=== PATIENT | male | born 1935 | race Hispanic/Latino ===

== ENCOUNTER 2018-04-26 21:20 | Inpatient (IN) | payer MEDICARE ==
--- NOTE | 2018-04-26 21:49 | ED PDOC ---
Arrival/HPI - General Chief Complaint: Flu-like Symptoms Time Seen by Provider: 04/26/18 21:32 Historian: Patient - History of Present Illness Narrative History of Present Illness (Text): 04/26/18 21:46 Santino Gomze is an 82 year old male, whose past medical history includes hypertension, CABG x 3, and diabetes, who presents to the Emergency department accompanied by family complaining of fever. Patient states he has been experiencing fever, shaking, nausea, and generalized body aches throughout the day. notes patient and family recently returned from [place] a few weeks prior. Patient denies any chest pain, shortness of breath/ vomiting, diarrhea, urinary symptoms, back pain, neck pain, headache, dizziness, or any other complaints. Symptom Onset: Gradual Symptom Course: Unchanged Activities at Onset: Light Context: Home Past Medical History - Provider Review Nursing Documentation Reviewed: Yes - Past History Past History: Non-Contributing - Infectious Disease Hx of Infectious Diseases: None - Tetanus Immunization Tetanus Immunization: Unknown - Cardiac Hx Hypertension: Yes Hx Pacemaker: No - Pulmonary Hx Respiratory Disorders: No - Neurological Hx Paralysis: No - Renal Hx Renal Failure: Yes (1 kidney) - Endocrine/Metabolic Hx Hyperthyroidism: Yes - Hematological/Oncological Hx Blood Transfusions: No Hx Blood Transfusion Reaction: No - Musculoskeletal/Rheumatological Hx Musculoskeletal Disorders: No - Gastrointestinal Hx Gastrointestinal Disorders: No - Genitourinary/Gynecological Hx Prostate Problems: Yes (BPH) - Psychiatric Hx Emotional Abuse: No Hx Physical Abuse: No Hx Substance Use: No - Surgical History Hx Open Heart Surgery: Yes (1994) Other/Comment: LEFT KIDNEY REMOVAL - Anesthesia Hx Anesthesia Reactions: No Hx Malignant Hyperthermia: No - Suicidal Assessment Feels Threatened In Home Enviroment: No Family/Social History - Physician Review Nursing Documentation Reviewed: Yes Family/Social History: Unknown Family HX Smoking Status: Former Smoker Hx Alcohol Use: No Hx Substance Use: No Hx Substance Use Treatment: No Allergies/Home Meds Allergies/Adverse Reactions: Allergies No Known Allergies Allergy (Verified 02/12/15 10:15) Home Medications: Home Meds Medication Instructions Recorded Confirmed Allopurinol [Zyloprim] 100 mg PO DAILY 04/27/18 04/27/18 Atorvastatin [Lipitor] 20 mg PO DAILY 04/27/18 04/27/18 Carvedilol [Coreg] 6.25 mg PO DAILY 04/27/18 04/27/18 Escitalopram [Lexapro] 20 mg PO DAILY 04/27/18 04/27/18 Gabapentin [Neurontin] 100 mg PO DAILY 04/27/18 04/27/18 Losartan/Hydrochlorothiazide 1 tab PO DAILY 04/27/18 04/27/18 [Losartan-Hctz 100-12.5 mg Tab] Meclizine [Meclizine*] 25 mg DAILY 04/27/18 04/27/18 MetFORMIN ER [Glucophage XR] 500 mg PO DAILY 04/27/18 04/27/18 Oxybutynin [Oxybutynin Chloride] 5 mg PO DAILY 04/27/18 04/27/18 RX: Omeprazole 40 mg PO DAILY 04/27/18 04/27/18 Tamsulosin [Flomax] 0.4 mg PO DAILY 04/27/18 04/27/18 Tizanidine HCl [Zanaflex] 4 mg PO DAILY 04/27/18 04/27/18 oxyCODONE/Acetaminophen [Percocet 5 - 325 mg Q6H PRN 04/27/18 04/27/18 5/325 mg Tab] Review of Systems - Physician Review All systems were reviewed & negative as marked: Yes - Review of Systems Constitutional: Fevers, Other (+shaking) Eyes: Normal ENT: Normal Respiratory: Normal. absent: SOB, Cough Gastrointestinal: Nausea. absent: Abdominal Pain, Diarrhea, Vomiting Genitourinary Male: Normal. absent: Dysuria, Frequency, Hematuria, Urinary Output Changes Musculoskeletal: Normal. absent: Back Pain, Neck Pain Skin: Normal Neurological: Normal. absent: Headache, Dizziness Endocrine: Normal Hemo/Lymphatic: Normal Psychiatric: Normal Physical Exam Vital Signs Reviewed: Yes Vital Signs Temp Pulse Resp BP Pulse Ox 04/26/18 21:28 102.6 F H 107 H 22 169/81 H 96 Temperature: Afebrile Blood Pressure: Hypertensive Pulse: Regular Respiratory Rate: Normal Appearance: Positive for: Well-Appearing, Non-Toxic, Comfortable Pain Distress: None Mental Status: Positive for: Alert and Oriented X 3 - Systems Exam Head: Present: Atraumatic, Normocephalic Pupils: Present: PERRL Extroacular Muscles: Present: EOMI Conjunctiva: Present: Normal Mouth: Present: Moist Mucous Membranes Neck: Present: Normal Range of Motion Respiratory/Chest: Present: Clear to Auscultation, Good Air Exchange. No: Respiratory Distress, Accessory Muscle Use Cardiovascular: Present: Regular Rate and Rhythm, Normal S1, S2. No: Murmurs Abdomen: No: Tenderness, Distention, Peritoneal Signs Back: Present: Normal Inspection Upper Extremity: Present: Normal Inspection. No: Cyanosis, Edema Lower Extremity: Present: Normal Inspection. No: Edema Neurological: Present: GCS=15, CN II-XII Intact, Speech Normal Skin: Present: Warm, Dry, Normal Color. No: Rashes Psychiatric: Present: Alert, Oriented x 3, Normal Insight, Normal Concentration Medical Decision Making ED Course and Treatment: 04/26/18 21:46 Impression: 82 year old male brought in for fever, shaking, nausea, and generalized body aches. Plan: -- EKG -- Chest X-ray -- Labs, VBG, blood cultures -- Rapid influenza -- Urinalysis, urine cultures -- Reassess and disposition Prior Visits: Notes and results from previous visits were reviewed. Progress Notes: 04/26/18 22:01 Reviewed EKG, sinus tachycardia at 110 bpm. Septal infarct. Non-specific ST/T changes. 04/26/18 22:46 Chest X-ray reviewed, shows no acute processes. 04/27/18 00:08 Case discussed with medical legal investigator district home economics agent, who is aware and agrees with plan. 04/27/18 00:[address] Falcon, [facility] physician, who is aware and agrees with plan. Accepts pt in to hospitalist service. Pt will go to remote telemetry observation for dehydration. - Lab Interpretations I have reviewed the lab results: Yes - RAD Interpretation Emergency Medicine Nurse Practitioner: ED Physician - EKG Interpretation Interpreted by ED Physician: Yes Type: 12 lead EKG - Scribe Statement The provider has reviewed the documentation as recorded by the Sandeep Jacobo Provider Scribe Attestation: All medical record entries made by the Scribe were at my direction and personally dictated by me. I have reviewed the chart and agree that the record accurately reflects my personal performance of the history, physical exam, medical decision making, and the department course for this patient. I have also personally directed, reviewed, and agree with the discharge instructions and disposition. Disposition/Present on Arrival - Present on Arrival Any Indicators Present on Arrival: No History of DVT/PE: No History of Uncontrolled Diabetes: No Urinary Catheter: No History of Decub. Ulcer: No History Surgical Site Infection Following: None - Disposition Have Diagnosis and Disposition been Completed?: Yes Diagnosis: Renal insufficiency, Dehydration Disposition: HOSPITALIZED Disposition Time: 00:10 Condition: FAIR
[2018-04-26 22:18] LABS: VENOUS BLOOD GAS PO2 32 mm/Hg (30-55); VENOUS BLOOD PH 7.29 (7.32-7.43)
[2018-04-26 22:20] LABS: BASO # 0.01 K/mm3 (0.0-2.0); BASO % 0.1 % (0.0-3.0); EOS # 0.2 (0.0-0.7); EOS % 1.7 % (1.5-5.0); GRAN # 7.18 (1.4-6.5); GRAN % 83.1 % (50.0-68.0); HEMOGLOBIN 11.8 g/dL (14.0-18.0); LYMPH # 0.9 (1.2-3.4); LYMPH % 10.4 % (22.0-35.0); MEAN CELL VOLUME 99.7 fl (80.0-105.0); MEAN CORPUSCULAR HEMOGLOBIN 33.1 pg (25.0-35.0); MEAN CORPUSCULAR HGB CONC 33.1 g/dl (31.0-37.0); MEAN PLATELET VOLUME 11.9 fl (7.0-11.0); MONO # 0.4 (0.1-0.6); MONO % 4.7 % (1.0-6.0); RBC 3.57 10^6/uL (3.5-6.1); RED CELL DISTRIBUTION WIDTH 13.1 % (11.5-14.5); URINE APPEARANCE CLEAR (CLEAR); URINE BILIRUBIN NEGATIVE (NEGATIVE); URINE BLOOD NEGATIVE (NEGATIVE); URINE COLOR YELLOW (YELLOW); URINE GLUCOSE (UA) NEGATIVE (NEGATIVE); URINE LEUKOCYTE ESTERASE NEGATIVE Leu/uL (NEGATIVE); URINE PROTEIN 100 mg/dL (<30 mg/dL); URINE UROBILINOGEN 0.2 E.U./dL (<1 E.U./dL); WHITE BLOOD COUNT 8.7 10^3/uL (4.5-11.0)
[2018-04-26 22:25] LABS: URINE BACTERIA NEG (NEG); URINE HYALINE CAST 0 - 2 /hpf; URINE RBC 0 - 2 /hpf (0-2); URINE WBC 0 - 2 /hpf (0-6)
[2018-04-26 22:26] LABS: INR 1.11; PARTIAL THROMBOPLASTIN TIME 27.2 Seconds (25.1-36.5); PROTHROMBIN TIME 12.7 SECONDS (9.4-12.5)
[2018-04-26 22:28] LABS: ALB/GLOB RATIO 1.3 (1.1-1.8); ALBUMIN 4.4 g/dL (3.0-4.8); CALCIUM 9.1 mg/dL (8.4-10.5)
[2018-04-26] MEDS ORDERED: Sodium Chloride 0.9% 1,000 ML IV SCH (22:45)
[2018-04-27] MEDS ORDERED: Sodium Chloride 0.9% 1,000 ML IV SCH (01:15)
[2018-04-27] MEDS: Sodium Chloride 0.9% 1,000 ML IV SCH ×2 (01:30→20:32)
[2018-04-27] MEDS ORDERED: Sod Polystyrene Sulf 15 gm/60 ml Susp PO STA (02:00)
--- NOTE | 2018-04-27 02:15 | CP.PCM.HP ---
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 Patient reports symptoms began after he came back from a trip to [place] 2 days ago; reports Body aches, shivering, fever, chills, nausea, malaise and solitary episode of SOB. Denies any sick contacts at home or in [place]. Patient does report that he has chronic R leg pain which he feels has worsened in severity however does not report any change in quality of the leg pain or worsening w/ ambulation. Reports associated R ear pain, denies any dizziness, change to vision. Also denies any cough, sore throat, neck pain, neck stiffness, chest pain, hematuria, dysuria, abd pain vomiting, diarrhea constipation. Denies any new onset rash as well. He also denies any Lower extremity swelling. Remainder 12 system ROS is otherwise negative. 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 Pharmacy: [facility] Rx: Percocet 5/325 Q6H PRN Losartan-HCTZ 100-12.5 QD Omeprazole 40 QD Tamsulosin 0.4 QD Gabapentin 100 QD Tizanidine 4 QHS Metformin 500 QD Atorvastatin 20 QD Coreg 6.25 QD Oxybutynin 5 QD Allopurinol 100 QD Escitalopram 20 QD Meclizine 25 QD Social: Former smoker - quit 1994, Denies EtOH, Denies Illicit Family: Denies Present on Admission - Present on Admission Any Indicators Present on Admission: No Review of Systems - Review of Systems All systems: reviewed and no additional remarkable complaints except Review of Systems: as per HPI Past Patient History - Infectious Disease Hx of Infectious Diseases: None - Tetanus Immunizations Tetanus Immunization: Unknown - Past Social History Smoking Status: Former Smoker - CARDIAC Hx Hypertension: Yes Hx Pacemaker: No - PULMONARY Hx Respiratory Disorders: No - NEUROLOGICAL Hx Paralysis: No - RENAL Hx Renal Failure: Yes (1 kidney) - ENDOCRINE/METABOLIC Hx Hyperthyroidism: Yes - HEMATOLOGICAL/ONCOLOGICAL Hx Blood Transfusions: No Hx Blood Transfusion Reaction: No - MUSCULOSKELETAL/RHEUMATOLOGICAL Hx Musculoskeletal Disorders: No - GASTROINTESTINAL Hx Gastrointestinal Disorders: No - GENITOURINARY/GYNECOLOGICAL Hx Prostate Problems: Yes (BPH) - PSYCHIATRIC Hx Emotional Abuse: No Hx Physical Abuse: No Hx Substance Use: No - SURGICAL HISTORY Hx Open Heart Surgery: Yes (1994) Other/Comment: LEFT KIDNEY REMOVAL - ANESTHESIA Hx Anesthesia Reactions: No Hx Malignant Hyperthermia: No Meds Allergies/Adverse Reactions: Allergies Allergy/AdvReac Type Severity Reaction Status Date / Time No Known Allergies Allergy Verified 02/12/15 10:15 Physical Exam - Constitutional Appears: Well, Non-toxic, No Acute Distress - Head Exam Head Exam: ATRAUMATIC, NORMOCEPHALIC - Eye Exam Eye Exam: EOMI, Normal appearance, PERRL. absent: Scleral icterus - ENT Exam Additional comments: Oropharynx erythematous Tongue red BL tympanic membranes non erythematous, good cone of light, non purulent, no drainage - Neck Exam Neck exam: Positive for: Normal Inspection. Negative for: Lymphadenopathy, Meningismus, Tenderness - Respiratory Exam Respiratory Exam: Clear to Auscultation Bilateral, NORMAL BREATHING PATTERN. absent: Rales, Rhonchi, Wheezes - Cardiovascular Exam Cardiovascular Exam: RRR, +S1, +S2. absent: Systolic Murmur - GI/Abdominal Exam GI & Abdominal Exam: Distended, Soft. absent: Tenderness Additional comments: normoactive bowel sounds tympanic - Extremities Exam Extremities exam: Negative for: tenderness Additional comments: pedal pulses diminished lower extremities warm robin's sign negative no lower extremity edema - Back Exam Back exam: absent: CVA tenderness (L), CVA tenderness (R) - Neurological Exam Neurological exam: Alert, CN II-XII Intact, Oriented x3 - Psychiatric Exam Psychiatric exam: Normal Affect, Normal Mood - Skin Skin Exam: Dry, Intact, Normal Color, Warm Results - Vital Signs Recent Vital Signs: Last Vital Signs Temp 99.3 F 04/27/18 00:53 Pulse 93 H 04/27/18 01:41 Resp 17 04/27/18 01:41 BP 125/69 04/27/18 01:41 Pulse Ox 98 04/27/18 01:41 - Labs Result Diagrams: 04/26/18 22:00 04/26/18 22:00 Labs: Laboratory Results - last 24 hr 04/26/18 04/26/18 04/26/18 22:00 22:00 22:00 WBC 8.7 RBC 3.57 Hgb 11.8 L Hct 35.6 L MCV 99.7 MCH 33.1 MCHC 33.1 RDW 13.1 Plt Count 157 MPV 11.9 H Gran % 83.1 H Lymph % (Auto) 10.4 L [place] % (Auto) 4.7 Eos % (Auto) 1.7 Baso % (Auto) 0.1 Gran # 7.18 H Lymph # (Auto) 0.9 L [place] # (Auto) 0.4 Eos # (Auto) 0.2 Baso # (Auto) 0.01 PT 12.7 H INR 1.11 APTT 27.2 pO2 VBG pH VBG pCO2 VBG HCO3 VBG Total CO2 VBG O2 Sat (Calc) VBG Base Excess VBG Potassium Sodium Chloride Glucose Lactate FiO2 Potassium Carbon Dioxide Anion Gap BUN Creatinine Est GFR ( Amer) Est GFR (Non-Af Amer) Random Glucose Calcium Phosphorus Magnesium Total Bilirubin AST ALT Alkaline Phosphatase Total Protein Albumin Globulin Albumin/Globulin Ratio Venous Blood Potassium Urine Color Yellow Urine Appearance Clear Urine pH 6.0 Ur Specific [place] 1.025 Urine Protein 100 H Urine Glucose (UA) Negative Urine Ketones Negative Urine Blood Negative Urine Nitrate Negative Urine Bilirubin Negative Urine Urobilinogen 0.2 Ur Leukocyte Esterase Negative Urine RBC 0 - 2 Urine WBC 0 - 2 Ur Epithelial Cells None Urine Bacteria Neg Hyaline Casts 0 - 2 Urine Other Usperm Influenza Typ A,B (EIA) 04/26/18 04/26/18 04/26/18 22:00 22:00 22:00 WBC RBC Hgb Hct MCV MCH MCHC RDW Plt Count MPV Gran % Lymph % (Auto) [place] % (Auto) Eos % (Auto) Baso % (Auto) Gran # Lymph # (Auto) [place] # (Auto) Eos # (Auto) Baso # (Auto) PT INR APTT pO2 32 VBG pH 7.29 L VBG pCO2 45.0 VBG HCO3 21.6 VBG Total CO2 23.0 VBG O2 Sat (Calc) 68.5 H VBG Base Excess -5.0 L VBG Potassium 5.0 Sodium 139.0 140 Chloride 106.0 108 H Glucose 199 H Lactate 1.7 FiO2 21.0 Potassium 5.2 H Carbon Dioxide 22 Anion Gap 15 BUN 59 H Creatinine 2.3 H Est GFR ( Amer) 33 Est GFR (Non-Af Amer) 27 Random Glucose 188 H Calcium 9.1 Phosphorus 2.1 L Magnesium 1.1 L Total Bilirubin 0.6 AST 41 ALT 45 Alkaline Phosphatase 87 Total Protein 7.8 Albumin 4.4 Globulin 3.4 Albumin/Globulin Ratio 1.3 Venous Blood Potassium 5.0 Urine Color Urine Appearance Urine pH Ur Specific [place] Urine Protein Urine Glucose (UA) Urine Ketones Urine Blood Urine Nitrate Urine Bilirubin Urine Urobilinogen Ur Leukocyte Esterase Urine RBC Urine WBC Ur Epithelial Cells Urine Bacteria Hyaline Casts Urine Other Influenza Typ A,B (EIA) Negative for flu a/b Assessment & Plan - Assessment and Plan (Free Text) Assessment: 82M w/ PMH CAD s/p triple bypass, renal cell CA s/p nephrectomy, DM, and chronic RLE pain, presented to [facility] ED on 04/27/18 w/ c/o arthalgias/myalgias, malaise, fever, found to have elevated Cr on admission admitted to obs for DELMAR on CKD, and febrile illness. Plan: DELMAR on CKD Baseline Cr. 1.7-1.8; BUN/ Cr on admission 59 / 2.3 Proteinuria on UA Monitor urine output - strict IO F/u bladder scan Will hold home Losartan-HCTZ for now Avoid nephrotoxic medications/ agents/ contrast C/w home flomax C/w home oxybutynin Nephrology Consulted - Dr. Wilks appreciate reccs Febrile Illness - most likely viral; r/o bacterial Follow up WBC in AM Follow up blood / urine Cx CXR wnl UA w/o bacteria/pyuria Supportive care Tylenol 650mg PRN fever + pain RLE Pain - most likely chronic sciatic pain however given recent travel hx must r/o DVT / PE F/u D-Dimer C/w home tizanidine Hyperkalemia 5.2 on adm; x1 kayexlate repeat K+ in AM Hx HTN C/w home coreg 6.25 qd Hx DM C/w home metformin 500 qd Hx HLD C/w atorvastatin 20 Hx Vertigo C/w home Meclizine PPX: Home Omeprazole, Heparin 5000 Q12 SC; AVOID LOVENOX DISPO: Obs med/surg Patient was seen, examined, discussed w/ attending physician Dr. Ezekiel Acosta DO PGY1 INTERNAL MEDICINE BINGO WORKER - Date & Time Date: 04/27/18 Time: 02:41 <Vinny Falcon - Last Filed: 04/27/18 06:45> Results - Vital Signs Recent Vital Signs: Last Vital Signs Temp 98.1 F 04/27/18 04:44 Pulse 71 04/27/18 06:42 Resp 16 04/27/18 06:42 BP 110/65 04/27/18 06:42 Pulse Ox 100 04/27/18 06:42 - Labs Result Diagrams: 04/27/18 04:13 04/27/18 04:13 Labs: Laboratory Results - last 24 hr 04/26/18 04/26/18 04/26/18 22:00 22:00 22:00 WBC 8.7 RBC 3.57 Hgb 11.8 L Hct 35.6 L MCV 99.7 MCH 33.1 MCHC 33.1 RDW 13.1 Plt Count 157 MPV 11.9 H Gran % 83.1 H Lymph % (Auto) 10.4 L [place] % (Auto) 4.7 Eos % (Auto) 1.7 Baso % (Auto) 0.1 Gran # 7.18 H Lymph # (Auto) 0.9 L [place] # (Auto) 0.4 Eos # (Auto) 0.2 Baso # (Auto) 0.01 PT 12.7 H INR 1.11 APTT 27.2 D-Dimer, Quantitative pO2 VBG pH VBG pCO2 VBG HCO3 VBG Total CO2 VBG O2 Sat (Calc) VBG Base Excess VBG Potassium Sodium Chloride Glucose Lactate FiO2 Potassium Carbon Dioxide Anion Gap BUN Creatinine Est GFR ( Amer) Est GFR (Non-Af Amer) POC Glucose (mg/dL) Random Glucose Calcium Phosphorus Magnesium Total Bilirubin AST ALT Alkaline Phosphatase Total Protein Albumin Globulin Albumin/Globulin Ratio Venous Blood Potassium Urine Color Yellow Urine Appearance Clear Urine pH 6.0 Ur Specific [place] 1.025 Urine Protein 100 H Urine Glucose (UA) Negative Urine Ketones Negative Urine Blood Negative Urine Nitrate Negative Urine Bilirubin Negative Urine Urobilinogen 0.2 Ur Leukocyte Esterase Negative Urine RBC 0 - 2 Urine WBC 0 - 2 Ur Epithelial Cells None Urine Bacteria Neg Hyaline Casts 0 - 2 Urine Other Usperm Influenza Typ A,B (EIA) 04/26/18 04/26/18 04/26/18 22:00 22:00 22:00 WBC RBC Hgb Hct MCV MCH MCHC RDW Plt Count MPV Gran % Lymph % (Auto) [place] % (Auto) Eos % (Auto) Baso % (Auto) Gran # Lymph # (Auto) [place] # (Auto) Eos # (Auto) Baso # (Auto) PT INR APTT D-Dimer, Quantitative pO2 32 VBG pH 7.29 L VBG pCO2 45.0 VBG HCO3 21.6 VBG Total CO2 23.0 VBG O2 Sat (Calc) 68.5 H VBG Base Excess -5.0 L VBG Potassium 5.0 Sodium 139.0 140 Chloride 106.0 108 H Glucose 199 H Lactate 1.7 FiO2 21.0 Potassium 5.2 H Carbon Dioxide 22 Anion Gap 15 BUN 59 H Creatinine 2.3 H Est GFR ( Amer) 33 Est GFR (Non-Af Amer) 27 POC Glucose (mg/dL) Random Glucose 188 H Calcium 9.1 Phosphorus 2.1 L Magnesium 1.1 L Total Bilirubin 0.6 AST 41 ALT 45 Alkaline Phosphatase 87 Total Protein 7.8 Albumin 4.4 Globulin 3.4 Albumin/Globulin Ratio 1.3 Venous Blood Potassium 5.0 Urine Color Urine Appearance Urine pH Ur Specific [place] Urine Protein Urine Glucose (UA) Urine Ketones Urine Blood Urine Nitrate Urine Bilirubin Urine Urobilinogen Ur Leukocyte Esterase Urine RBC Urine WBC Ur Epithelial Cells Urine Bacteria Hyaline Casts Urine Other Influenza Typ A,B (EIA) Negative for flu a/b 04/26/18 04/27/18 04/27/18 22:02 01:00 04:09 WBC RBC Hgb Hct MCV MCH MCHC RDW Plt Count MPV Gran % Lymph % (Auto) [place] % (Auto) Eos % (Auto) Baso % (Auto) Gran # Lymph # (Auto) [place] # (Auto) Eos # (Auto) Baso # (Auto) PT INR APTT D-Dimer, Quantitative 1025 H pO2 VBG pH VBG pCO2 VBG HCO3 VBG Total CO2 VBG O2 Sat (Calc) VBG Base Excess VBG Potassium Sodium Chloride Glucose Lactate FiO2 Potassium Carbon Dioxide Anion Gap BUN Creatinine Est GFR ( Amer) Est GFR (Non-Af Amer) POC Glucose (mg/dL) 175 H 162 H Random Glucose Calcium Phosphorus Magnesium Total Bilirubin AST ALT Alkaline Phosphatase Total Protein Albumin Globulin Albumin/Globulin Ratio Venous Blood Potassium Urine Color Urine Appearance Urine pH Ur Specific [place] Urine Protein Urine Glucose (UA) Urine Ketones Urine Blood Urine Nitrate Urine Bilirubin Urine Urobilinogen Ur Leukocyte Esterase Urine RBC Urine WBC Ur Epithelial Cells Urine Bacteria Hyaline Casts Urine Other Influenza Typ A,B (EIA) 04/27/18 04/27/18 04:13 04:13 WBC 9.3 RBC 3.26 L Hgb 10.6 L Hct 32.5 L MCV 99.7 MCH 32.5 MCHC 32.6 RDW 12.8 Plt Count 169 MPV 12.1 H Gran % 73.8 H Lymph % (Auto) 17.3 L [place] % (Auto) 7.8 H Eos % (Auto) 1.0 L Baso % (Auto) 0.1 Gran # 6.86 H Lymph # (Auto) 1.6 [place] # (Auto) 0.7 H Eos # (Auto) 0.1 Baso # (Auto) 0.01 PT INR APTT D-Dimer, Quantitative pO2 VBG pH VBG pCO2 VBG HCO3 VBG Total CO2 VBG O2 Sat (Calc) VBG Base Excess VBG Potassium Sodium 142 Chloride 109 H Glucose Lactate FiO2 Potassium 5.0 Carbon Dioxide 25 Anion Gap 12 BUN 57 H Creatinine 2.2 H Est GFR ( Amer) 35 Est GFR (Non-Af Amer) 29 POC Glucose (mg/dL) Random Glucose 171 H Calcium 9.0 Phosphorus 2.5 Magnesium 1.2 L Total Bilirubin 0.4 AST 35 ALT 39 Alkaline Phosphatase 76 Total Protein 7.1 Albumin 3.9 Globulin 3.2 Albumin/Globulin Ratio 1.2 Venous Blood Potassium Urine Color Urine Appearance Urine pH Ur Specific [place] Urine Protein Urine Glucose (UA) Urine Ketones Urine Blood Urine Nitrate Urine Bilirubin Urine Urobilinogen Ur Leukocyte Esterase Urine RBC Urine WBC Ur Epithelial Cells Urine Bacteria Hyaline Casts Urine Other Influenza Typ A,B (EIA) Attending/Attestation - Attestation I have personally seen and examined this patient.: Yes I have fully participated in the care of the patient.: Yes I have reviewed all pertinent clinical information: Yes
[2018-04-27 04:26] LABS: BASO # 0.01 K/mm3 (0.0-2.0); BASO % 0.1 % (0.0-3.0); EOS # 0.1 (0.0-0.7); GRAN # 6.86 (1.4-6.5); GRAN % 73.8 % (50.0-68.0); HEMOGLOBIN 10.6 g/dL (14.0-18.0); LYMPH # 1.6 (1.2-3.4); LYMPH % 17.3 % (22.0-35.0); MEAN CELL VOLUME 99.7 fl (80.0-105.0); MEAN CORPUSCULAR HEMOGLOBIN 32.5 pg (25.0-35.0); MEAN CORPUSCULAR HGB CONC 32.6 g/dl (31.0-37.0); MEAN PLATELET VOLUME 12.1 fl (7.0-11.0); MONO # 0.7 (0.1-0.6); MONO % 7.8 % (1.0-6.0); RBC 3.26 10^6/uL (3.5-6.1); RED CELL DISTRIBUTION WIDTH 12.8 % (11.5-14.5); WHITE BLOOD COUNT 9.3 10^3/uL (4.5-11.0)
[2018-04-27 04:33] LABS: ALB/GLOB RATIO 1.2 (1.1-1.8); ALBUMIN 3.9 g/dL (3.0-4.8)
[2018-04-27 04:46] VITALS: BMI 28.0
[2018-04-27] MEDS: Heparin25000 units/250ml 1/2NS 25,000 UNITS/250 ML BAG IV PRN (05:26)
--- NOTE | 2018-04-27 08:40 | CARD ---
APPROVED REPORT Date of service: 04/26/2018 EKG Measurement Heart [id number] <Conclusion> Sinus tachycardia Possible Left atrial enlargement Septal infarct, age undetermined Abnormal ECG
--- NOTE | 2018-04-27 09:39 | RAD ---
Date of service: 04/26/2018 HISTORY: Sepsis Patient COMPARISON: 07/05/2017 FINDINGS: LUNGS: No active pulmonary disease. PLEURA: No significant pleural effusion identified, no pneumothorax apparent. CARDIOVASCULAR: Aortic calcification Normal cardiac size. No pulmonary vascular congestion. OSSEOUS STRUCTURES: Sternal wires VISUALIZED UPPER ABDOMEN: Normal. OTHER FINDINGS: None. IMPRESSION: No active disease.
[2018-04-27] MEDS: Pantoprazole 40 mg EC Tab PO SCH (11:00)
--- NOTE | 2018-04-27 12:43 | US ---
HISTORY: Leg pain and swelling. Evaluate for DVT PHYSICIAN(S): Chet Stuart MD. TECHNIQUE: Duplex sonography and color-flow Doppler with graded compression were used to evaluate the deep venous systems of both lower extremities. The exam is somewhat limited by edema. FINDINGS: The visualized deep venous systems of both lower extremities are sonographically normal and compressible. Normal wave forms and augmentation are seen. There is no sonographic evidence for deep venous thrombosis in the visualized segments of both lower extremities. IMPRESSION: No sonographic evidence for deep venous thrombosis in the visualized segments of both lower extremities.
[2018-04-27] MEDS: Insulin Reg-LOW-Coverage SC SCH ×4 (13:29→22:19)
[2018-04-27] MEDS ORDERED: Insulin Regular 1 UNITS/0.01 ML ML ONE (13:35)
--- NOTE | 2018-04-27 18:40 | CON ---
DATE OF CONSULTATION: 04/27/2018 NEPHROLOGY CONSULTATION HISTORY OF PRESENT ILLNESS: The patient is an 82-year-old male with past medical history of hypertension, diabetes, CAD, status post CABG, CKD 3B, renal cell carcinoma, status post left nephrectomy, presented with body aches and fever. Nephrology being consulted for acute kidney injury. The patient reports above symptoms occurring just after coming back from a 2-month trip to [place]. The patient came back 2 days ago, did not have symptoms while traveling. Reports nausea without vomiting, also reporting some throat pain. The patient otherwise reports right hip pain that is currently improved, was started on pain medication just before leaving for [place] that he continued to take daily. The patient otherwise denies any dysuria, denies any dizziness, denies any diarrhea, has occasional shortness of breath. PAST MEDICAL HISTORY: As above. The patient had been having orthostatic symptoms with low blood pressure readings during office visit 6 months ago and had one of his blood pressure medications stopped at that time (Imdur). FAMILY HISTORY: None per the patient. SOCIAL HISTORY: Former smoker. REVIEW OF SYSTEMS: CONSTITUTIONAL: As per HPI, reporting fever and chills. HEENT: No change in vision. RESPIRATORY: As per HPI. GI: As per HPI. : As per HPI. MUSCULOSKELETAL: As per HPI. NEURO: Intermittent headache. MUSCULOSKELETAL: As per HPI. PHYSICAL EXAMINATION: VITAL SIGNS: This afternoon, blood pressure 141/84, heart rate 78, respirations 18, temperature 99.5, O2 sat 97% on room air. GENERAL: No distress. Conversing coherently in full sentences. HEENT: Moist mucous membranes. Nonicteric. No cervical lymphadenopathy. RESPIRATORY: Lungs clear to auscultation. Mild bilateral basal rales appreciated. No respiratory distress. No rhonchi, no wheezes. CARDIOVASCULAR: Heart sounds S1 and S2 normal. No murmurs, no gallops, no rubs. GI: Abdomen soft, nontender, nondistended. : No bladder distention. EXTREMITIES: Minimal lower leg edema. SKIN: Warm. No cyanosis. PSYCHIATRIC: Normal mood, normal affect. NEURO: No resting tremor. DIAGNOSTIC DATA: Labs from this morning, CBC: WBC 9.3, hemoglobin 10.6, hematocrit 32.5, platelets 169,000. Chemistry panel: Sodium 142, potassium 5.0, chloride 109, bicarb 25, BUN 57, creatinine 2.2, glucose 171, phosphorus 2.5, calcium 9.0, magnesium 1.2. AST 35, ALT 39, albumin 3.9. Procalcitonin 8.43. Urine: 100 mg/dL protein, leukocyte esterase negative, blood negative. ABG from presentation pH 7-9, pCO2 of 45. Chest x-ray directly visualized, lungs clear. Lower extremity ultrasound showing no evidence of DVT in either lower extremity. ASSESSMENT/PLAN 1. Acute kidney injury on chronic kidney disease, 3B, mild worsening of renal function with baseline serum creatinine of approximately 1.8 increasing to 2.2, likely hemodynamically mediated in the setting of decreased p.o. intake and with the patient having been on diuretic. Mild hyperkalemia seen, already improved after dose of Kayexalate. Otherwise stable volume status. Should avoid nephrotoxic agents. We will decrease IV fluids to NS of 50 mL/h as the patient is normotensive. Agree with holding ARB for now. 2. Hypertensive chronic kidney disease. Blood pressure normotensive to mildly elevated. The patient on Coreg 6.25 mg b.i.d. and losartan/hydrochlorothiazide combination at home. Continue Coreg. Agree with holding losartan and hydrochlorothiazide for now. 3. Fever, unclear etiology, currently not febrile, with T-max on presentation of 102.6. No obvious sign of infection. We will follow up cultures. If antibiotics needed, should be dosed for creatinine clearance less than 30. Thank you for this referral. We will be following up closely. Evelio Wilks MD
[2018-04-27] MEDS ORDERED: Piperacillin/Tazobact 3.375 gm 100 ML IVPB SCH (22:00)
[2018-04-27] MEDS: Piperacillin/Tazobact 2.25gm 2.25 GM/100 ML BAG IVPB SCH (22:23)
[2018-04-28] MEDS: Heparin25000 units/250ml 1/2NS 25,000 UNITS/250 ML BAG IV PRN (00:21)
[2018-04-28] MEDS ORDERED: Barium Sulfate Susp 2.1% w/v, 2.0% w/w 450 mL Bottle PO ONE (03:37)
[2018-04-28] MEDS ORDERED: Iohexol 240 (50 ml) ONE (05:17)
[2018-04-28] MEDS: Pantoprazole 40 mg EC Tab PO SCH (05:25)
[2018-04-28] MEDS: Piperacillin/Tazobact 2.25gm 2.25 GM/100 ML BAG IVPB SCH ×3 (05:25→21:43)
[2018-04-28 07:09] LABS: BASO # 0.01 K/mm3 (0.0-2.0); BASO % 0.1 % (0.0-3.0); EOS # 0.2 (0.0-0.7); EOS % 2.6 % (1.5-5.0); GRAN # 4.57 (1.4-6.5); GRAN % 62.9 % (50.0-68.0); HEMOGLOBIN 11.1 g/dL (14.0-18.0); LYMPH # 1.6 (1.2-3.4); LYMPH % 21.9 % (22.0-35.0); MEAN CELL VOLUME 98.5 fl (80.0-105.0); MEAN CORPUSCULAR HEMOGLOBIN 32.6 pg (25.0-35.0); MEAN PLATELET VOLUME 11.8 fl (7.0-11.0); MONO # 0.9 (0.1-0.6); MONO % 12.5 % (1.0-6.0); RBC 3.41 10^6/uL (3.5-6.1); WHITE BLOOD COUNT 7.3 10^3/uL (4.5-11.0)
[2018-04-28 07:26] LABS: ALB/GLOB RATIO 1.2 (1.1-1.8); ALBUMIN 3.7 g/dL (3.0-4.8)
--- NOTE | 2018-04-28 07:39 | CP.PCM.CON ---
<[facility] Hager - Last Filed: 04/28/18 11:50> History of Present Illness - History of Present Illness History of Present Illness: Infectious disease consult note for Dr. Doherty/Dr. Rivas service - Alexander Hager PGY3 HPI: Patient is a 82yo male with past medical history of CAD s/p triple bypass (1994), Renal Ca s/p R nephrectomy ([id number]?), Diabetes, hypertension, CKD stage 3 that presented to [facility] with c/o fevers and malaise that started shortly after returning from a trip to [place] 2 days prior to presentation. He stated that upon returning he began having chills, nausea and body aches. He denied any sick contacts while abroad and questionable food ingestion. Presently he denies chest pain, palpitations, abdominal pain, vomiting, diarrhea, constipation, rashes, cough, sore throat, neck stiffness, focal weakness, numbness, tingling. 12point ROS as per above otherwise negative PMH: as stated above PSH: as stated above Allergies: NKDA Social Hx: Former tobacco use (quit 1994), denies alcohol and illicit drug use Family Hx: denies PMD: Dr. Shabazz Lottery Clerk: Dr. Wilks Past Patient History - Infectious Disease Hx of Infectious Diseases: None - Tetanus Immunizations Tetanus Immunization: Unknown - Past Social History Smoking Status: Former Smoker - CARDIAC Hx Hypertension: Yes Hx Pacemaker: No - PULMONARY Hx Respiratory Disorders: No - NEUROLOGICAL Hx Neurological Disorder: No - RENAL Hx Renal Failure: Yes (1 kidney) - ENDOCRINE/METABOLIC Hx Hyperthyroidism: Yes - HEMATOLOGICAL/ONCOLOGICAL Hx Blood Transfusions: No Hx Blood Transfusion Reaction: No - MUSCULOSKELETAL/RHEUMATOLOGICAL Hx Falls: No - GASTROINTESTINAL Hx Gastrointestinal Disorders: No - GENITOURINARY/GYNECOLOGICAL Hx Prostate Problems: Yes (BPH) - PSYCHIATRIC Hx Emotional Abuse: No Hx Physical Abuse: No - SURGICAL HISTORY Hx Open Heart Surgery: Yes (1994) Other/Comment: LEFT KIDNEY REMOVAL - ANESTHESIA Hx Anesthesia: Yes Hx Anesthesia Reactions: No Hx Malignant Hyperthermia: No Meds Allergies/Adverse Reactions: Allergies Allergy/AdvReac Type Severity Reaction Status Date / Time No Known Allergies Allergy Verified 02/12/15 10:15 - Medications Medications: Current Medications Acetaminophen (Tylenol 325mg Tab) 650 mg PO Q4 PRN PRN Reason: Fever >100.4 F Last Admin: 04/27/18 17:20 Dose: 650 mg Allopurinol (Zyloprim) 100 mg PO DAILY [facility] Last Admin: 04/27/18 10:58 Dose: 100 mg Atorvastatin Calcium (Lipitor) 20 mg PO DAILY [facility] Last Admin: 04/27/18 10:59 Dose: 20 mg Carvedilol (Coreg) 6.25 mg PO BID [facility] Doxycycline Hyclate (Doryx) 100 mg PO Q12 [facility]; Protocol Stop: 05/06/18 22:01 Last Admin: 04/27/18 22:23 Dose: 100 mg Escitalopram Oxalate (Lexapro) 20 mg PO DAILY [facility] Last Admin: 04/27/18 10:59 Dose: 20 mg Gabapentin (Neurontin) 100 mg PO DAILY [facility]; Protocol Last Admin: 04/27/18 10:58 Dose: 100 mg Sodium Chloride (Sodium Chloride 0.9%) 1,000 mls @ 100 mls/hr IV .Q10H [facility] Last Admin: 04/27/18 20:32 Dose: 100 mls/hr Heparin Sodium/Sodium Chloride (Heparin 62078 Units/250ml 1/2 Normal Saline) 25,000 units in 250 mls @ 13.749 mls/hr IV .[id number] PRN; Protocol PRN Reason: ADJUST RATE PER PROTOCOL Last Admin: 04/28/18 00:21 Dose: 18 units/kg/hr, 13.749 mls/hr Piperacillin Sod/Tazobactam Sod (Zosyn 2.25 Gm In 0.9% 100 Ml) 2.25 gm in 100 mls @ 100 mls/hr IVPB Q8 [facility]; Protocol Stop: 05/06/18 22:01 Last Admin: 04/28/18 05:25 Dose: 100 mls/hr Insulin Human Regular (Humulin R Low) 0 units SC ACHS [facility] Last Admin: 04/27/18 22:19 Dose: Not Given Meclizine HCl (Antivert) 25 mg PO DAILY [facility] Last Admin: 04/27/18 10:59 Dose: 25 mg Oxybutynin Chloride (Ditropan Tab) 5 mg PO DAILY [facility] Last Admin: 04/27/18 10:59 Dose: 5 mg Pantoprazole Sodium (Protonix Ec Tab) 40 mg PO 0600 [facility] Last Admin: 04/28/18 05:25 Dose: 40 mg Tamsulosin HCl (Flomax) 0.4 mg PO DAILY [facility] Last Admin: 04/27/18 11:00 Dose: 0.4 mg Tizanidine HCl (Zanaflex) 4 mg PO DAILY [facility] Last Admin: 04/27/18 10:59 Dose: 4 mg Physical Exam - Constitutional Appears: No Acute Distress - Head Exam Head Exam: ATRAUMATIC, NORMAL INSPECTION, NORMOCEPHALIC - Eye Exam Eye Exam: EOMI, PERRL - ENT Exam ENT Exam: Mucous Membranes Moist - Respiratory Exam Respiratory Exam: absent: Rales, Rhonchi, Wheezes - Cardiovascular Exam Cardiovascular Exam: RRR, +S1, +S2. absent: Clicks, Gallop, Rubs - GI/Abdominal Exam GI & Abdominal Exam: Soft. absent: Distended, Firm, Guarding, Rigid, Tenderness - Neurological Exam Neurological exam: Alert, CN II-XII Intact, Oriented x3 - Psychiatric Exam Psychiatric exam: Normal Affect, Normal Mood - Skin Skin Exam: Dry, Intact, Normal Color, Warm Results - Vital Signs Recent Vital Signs: Last Vital Signs Temp 98.1 F 04/27/18 20:00 Pulse 88 04/27/18 20:00 Resp 20 04/27/18 20:00 BP 150/76 04/27/18 20:00 Pulse Ox 98 04/27/18 20:00 - Labs Result Diagrams: 04/28/18 06:15 04/28/18 06:15 Labs: Laboratory Results - last 24 hr 04/27/18 04/27/18 04/27/18 04:13 12:53 14:10 WBC RBC Hgb Hct MCV MCH MCHC RDW Plt Count MPV Gran % Lymph % (Auto) Rooks % (Auto) Eos % (Auto) Baso % (Auto) Gran # Lymph # (Auto) Rooks # (Auto) Eos # (Auto) Baso # (Auto) APTT 61.2 H Sodium Potassium Chloride Carbon Dioxide Anion Gap BUN Creatinine Est GFR ( Amer) Est GFR (Non-Af Amer) POC Glucose (mg/dL) 226 H Random Glucose Calcium Total Bilirubin AST ALT Alkaline Phosphatase Total Protein Albumin Globulin Albumin/Globulin Ratio Procalcitonin 8.43 H 04/27/18 04/27/18 04/27/18 16:32 20:25 22:16 WBC RBC Hgb Hct MCV MCH MCHC RDW Plt Count MPV Gran % Lymph % (Auto) Rooks % (Auto) Eos % (Auto) Baso % (Auto) Gran # Lymph # (Auto) Rooks # (Auto) Eos # (Auto) Baso # (Auto) APTT 58.3 H Sodium Potassium Chloride Carbon Dioxide Anion Gap BUN Creatinine Est GFR ( Amer) Est GFR (Non-Af Amer) POC Glucose (mg/dL) 106 173 H Random Glucose Calcium Total Bilirubin AST ALT Alkaline Phosphatase Total Protein Albumin Globulin Albumin/Globulin Ratio Procalcitonin 04/28/18 04/28/18 04/28/18 06:15 06:15 06:15 WBC 7.3 D RBC 3.41 L Hgb 11.1 L Hct 33.6 L MCV 98.5 MCH 32.6 MCHC 33.0 RDW 13.0 Plt Count 182 MPV 11.8 H Gran % 62.9 Lymph % (Auto) 21.9 L Rooks % (Auto) 12.5 H Eos % (Auto) 2.6 Baso % (Auto) 0.1 Gran # 4.57 Lymph # (Auto) 1.6 Rooks # (Auto) 0.9 H Eos # (Auto) 0.2 Baso # (Auto) 0.01 APTT 62.4 H Sodium 142 Potassium 4.5 Chloride 109 H Carbon Dioxide 24 Anion Gap 13 BUN 37 H Creatinine 1.7 H Est GFR ( Amer) 47 Est GFR (Non-Af Amer) 39 POC Glucose (mg/dL) Random Glucose 146 H Calcium 9.0 Total Bilirubin 0.6 AST 46 ALT 46 Alkaline Phosphatase 88 Total Protein 6.9 Albumin 3.7 Globulin 3.1 Albumin/Globulin Ratio 1.2 Procalcitonin Assessment & Plan - Assessment and Plan (Free Text) Plan: 82yo male with history of CAD s/p triple bypass, renal cell CA s/p nephrectomy, DM, chronic RLE pain and CKD presents with fever associated with malaise, arthralgias. ID consulted for evaluation of infectious etiologies. 1. Fever/chills/arthralgias r/o viral/bacterial/parasitic infections 2. DELMAR on CKD 3. Chronic RLE pain 4. Hx of HTN 5. Hx of DM 6. Hx of HLD 7. Hx of vertigo Plan: -Patient has presently been afebrile since admission, no leukocytosis; Tmax of 102.6F -Blood/sputum cultures are pending -Urinalysis negative for infection -CXR revealed no active disease -EKG reviewed -Procalcitonin is elevated at 8.43 however may be elevated in CKD patients -Rapid flu negative -MRSA screen pending -Malaria/babesia workup pending -CT chest/abdomen/pelvis has been ordered for further workup of FUO -Legionella urine antigen pending -Patient has presently been started on Zosyn/Doxycyline pending the above workup -f/u nephrology recommendations concerning DELMAR on CKD Patient seen and case discussed/reviewed with attending, Dr. Doherty <Kyle Doherty - Last Filed: 04/28/18 21:12> Meds - Medications Medications: Current Medications Acetaminophen (Tylenol 325mg Tab) 650 mg PO Q4 PRN PRN Reason: Fever >100.4 F Last Admin: 04/28/18 19:10 Dose: 650 mg Allopurinol (Zyloprim) 100 mg PO DAILY [facility] Last Admin: 04/28/18 10:30 Dose: 100 mg Atorvastatin Calcium (Lipitor) 20 mg PO DAILY [facility] Last Admin: 04/28/18 10:38 Dose: 20 mg Carvedilol (Coreg) 6.25 mg PO BID [facility] Last Admin: 04/28/18 19:09 Dose: 6.25 mg Doxycycline Hyclate (Doryx) 100 mg PO Q12 [facility]; Protocol Stop: 05/06/18 22:01 Last Admin: 04/28/18 10:37 Dose: 100 mg Escitalopram Oxalate (Lexapro) 20 mg PO DAILY [facility] Last Admin: 04/28/18 10:38 Dose: 20 mg Gabapentin (Neurontin) 100 mg PO DAILY [facility]; Protocol Last Admin: 04/28/18 10:37 Dose: 100 mg Piperacillin Sod/Tazobactam Sod (Zosyn 2.25 Gm In 0.9% 100 Ml) 2.25 gm in 100 mls @ 100 mls/hr IVPB Q8 [facility]; Protocol Stop: 05/06/18 22:01 Last Admin: 04/28/18 13:43 Dose: 100 mls/hr Insulin Human Regular (Humulin R Low) 0 units SC ACHS [facility] Last Admin: 04/28/18 13:41 Dose: 1 units Meclizine HCl (Antivert) 25 mg PO DAILY [facility] Last Admin: 04/28/18 10:37 Dose: 25 mg Oxybutynin Chloride (Ditropan Tab) 5 mg PO DAILY [facility] Last Admin: 04/28/18 11:00 Dose: 5 mg Pantoprazole Sodium (Protonix Ec Tab) 40 mg PO 0600 [facility] Last Admin: 04/28/18 05:25 Dose: 40 mg Tamsulosin HCl (Flomax) 0.4 mg PO DAILY [facility] Last Admin: 04/28/18 10:37 Dose: 0.4 mg Tizanidine HCl (Zanaflex) 4 mg PO DAILY [facility] Last Admin: 04/28/18 10:38 Dose: 4 mg Results - Vital Signs Recent Vital Signs: Last Vital Signs Temp 99 F 04/28/18 10:00 Pulse 64 04/28/18 19:09 Resp 18 04/28/18 16:00 BP 128/65 04/28/18 19:09 Pulse Ox 99 04/28/18 16:00 - Labs Result Diagrams: 04/28/18 06:15 04/28/18 06:15 Labs: Laboratory Results - last 24 hr 04/27/18 04/28/18 04/28/18 22:16 06:15 06:15 WBC 7.3 D RBC 3.41 L Hgb 11.1 L Hct 33.6 L MCV 98.5 MCH 32.6 MCHC 33.0 RDW 13.0 Plt Count 182 MPV 11.8 H Gran % 62.9 Lymph % (Auto) 21.9 L Rooks % (Auto) 12.5 H Eos % (Auto) 2.6 Baso % (Auto) 0.1 Gran # 4.57 Lymph # (Auto) 1.6 Rooks # (Auto) 0.9 H Eos # (Auto) 0.2 Baso # (Auto) 0.01 APTT Sodium 142 Potassium 4.5 Chloride 109 H Carbon Dioxide 24 Anion Gap 13 BUN 37 H Creatinine 1.7 H Est GFR ( Amer) 47 Est GFR (Non-Af Amer) 39 POC Glucose (mg/dL) 173 H Random Glucose 146 H Calcium 9.0 Total Bilirubin 0.6 AST 46 ALT 46 Alkaline Phosphatase 88 Total Protein 6.9 Albumin 3.7 Globulin 3.1 Albumin/Globulin Ratio 1.2 04/28/18 04/28/18 04/28/18 06:15 10:02 13:06 WBC RBC Hgb Hct MCV MCH MCHC RDW Plt Count MPV Gran % Lymph % (Auto) Rooks % (Auto) Eos % (Auto) Baso % (Auto) Gran # Lymph # (Auto) Rooks # (Auto) Eos # (Auto) Baso # (Auto) APTT 62.4 H Sodium Potassium Chloride Carbon Dioxide Anion Gap BUN Creatinine Est GFR ( Amer) Est GFR (Non-Af Amer) POC Glucose (mg/dL) 136 H 190 H Random Glucose Calcium Total Bilirubin AST ALT Alkaline Phosphatase Total Protein Albumin Globulin Albumin/Globulin Ratio 04/28/18 17:24 WBC RBC Hgb Hct MCV MCH MCHC RDW Plt Count MPV Gran % Lymph % (Auto) Rooks % (Auto) Eos % (Auto) Baso % (Auto) Gran # Lymph # (Auto) Rooks # (Auto) Eos # (Auto) Baso # (Auto) APTT Sodium Potassium Chloride Carbon Dioxide Anion Gap BUN Creatinine Est GFR ( Amer) Est GFR (Non-Af Amer) POC Glucose (mg/dL) 119 H Random Glucose Calcium Total Bilirubin AST ALT Alkaline Phosphatase Total Protein Albumin Globulin Albumin/Globulin Ratio Assessment & Plan - Assessment and Plan (Free Text) Plan: Infectious diseases Attending Physician Attestation Patient seen and examined, discussed with medical transcription radiology. I have reviewed the patient's history of present illness, past medical, social, personal and family histories, pertinent physical exam findings, course so far in this hospital admission, pertinent laboratory and imaging results. I agree with the above fin dings, assessment and plan. In addition, will have started Zosyn for this patient with SIRS, R/O sepsis from acute cholecystitis. CT C/A/P reviewed showing GB wall thickening - will get U/S of abdomen.
--- NOTE | 2018-04-28 09:29 | CT ---
Date of service: 04/28/2018 PROCEDURE: CT Chest, Abdomen and Pelvis without intravenous contrast HISTORY: fever 0f 102 COMPARISON: Comparison is made with the previous CT of the abdomen of the pelvis dated 06/17/2014 TECHNIQUE: Radiation dose: Total exam DLP = 897.91 mGy-cm. This CT exam was performed using one or more of the following dose reduction techniques: Automated exposure control, adjustment of the mA and/or kV according to patient size, and/or use of iterative reconstruction technique. FINDINGS: CT CHEST WITHOUT CONTRAST: LUNGS: There are 3 adjacent nodule in the anterior aspect of the left lung upper lobe with the largest nodule measures 8.5 millimeter. Mild emphysematous changes noted in the lungs. MEDIASTINUM: Unremarkable. Normal caliber aorta and pulmonary arterial trunk. There is diffuse atherosclerotic calcification in the aortic arch. The heart is mildly enlarged.. LYMPH NODES: No evidence of significant lymphadenopathy PLEURA: Unremarkable. No pneumothorax. No pleural fluid. BONES: Unremarkable. Status post sternotomy. OTHER FINDINGS: None. CT ABDOMEN AND PELVIS: LIVER: Unremarkable. No gross lesion or ductal dilatation. GALLBLADDER AND BILE DUCTS: The gallbladder is distended demonstrate diffuse wall thickening and contains gallstones. There is mild pericholecystic inflammatory changes. Correlate clinically for possible cholecystitis and if indicated further assessment by ultrasound may be obtained. PANCREAS: Heterogeneous pancreas with diffuse fatty infiltration is noted. SPLEEN: Unremarkable. ADRENALS: Again noted is 1.1 centimeter nodule at the left adrenal gland. KIDNEYS AND URETERS: The patient is status post left nephrectomy. No significant interval changes in the right kidney noted since the previous exam. Mild nonspecific right perinephric stranding is again noted. Small calcification in right kidney likely vascular in nature. VASCULATURE: Diffuse atherosclerotic disease noted in the abdominal aorta. The patient is status post kissing stents insertion at the aortic bifurcation extending to the common iliac arteries. Foci of mural thickening and intimal calcification displacement are again noted in the mid and distal abdominal aorta. The IVC is normal in caliber. BOWEL: Unremarkable. No obstruction. No gross mural thickening. APPENDIX: Normal appendix. PERITONEUM: Unremarkable. No free fluid. No free air. LYMPH NODES: Unremarkable. No enlarged lymph nodes. BLADDER: The urinary bladder is mildly distended. Again noted is bladder diverticulum in the left wall. REPRODUCTIVE: Prostate is moderately to markedly enlarged. BONES: No acute fracture. OTHER FINDINGS: None. IMPRESSION: Distended gallbladder demonstrate mild diffuse wall thickening and contains gallstones. Correlate clinically for cholecystitis and if clinically warranted further assessment by ultrasound or MRCP may be obtained. No evidence of acute pathology in the chest. Three adjacent lung nodules noted in the left upper lobe with the largest measures 8.5 millimeter. Additional stable findings in the abdomen and pelvis as discussed above.
[2018-04-28] MEDS: Insulin Reg-LOW-Coverage SC SCH ×3 (10:41→21:42)
[2018-04-28] MEDS: Insulin Regular 1 UNITS/0.01 ML ML ONE ×2 (13:40)
[2018-04-28] MEDS ORDERED: Magnesium Sulfate 2 gm/50 ml 2 GM/50 ML BAG IVPB ONE (14:15)
--- NOTE | 2018-04-28 14:20 | CP.PCM.PN ---
<Jorge Saavedra - Last Filed: 04/28/18 14:16> Subjective - Date & Time of Evaluation Date of Evaluation: 04/28/18 Time of Evaluation: 07:00 - Subjective Subjective: Patient seen and examined at bedside. Patient states he is feeling well with no complaints. No acute events overnight. Denies chest pain, shortness of breath, nausea, vomiting, diarrhea, fever, chills. Objective - Vital Signs/Intake and Output Vital Signs (last 24 hours): Temp Pulse Resp BP Pulse Ox 96.8 F L 75 18 135/69 99 04/28/18 06:00 04/28/18 12:08 04/28/18 12:08 04/28/18 12:08 04/28/18 12:08 Intake and Output: 04/28/18 04/28/18 06:59 18:59 Intake Total 250 Output Total 600 Balance -350 - Medications Medications: Current Medications Acetaminophen (Tylenol 325mg Tab) 650 mg PO Q4 PRN PRN Reason: Fever >100.4 F Last Admin: 04/28/18 11:44 Dose: 650 mg Allopurinol (Zyloprim) 100 mg PO DAILY [facility] Last Admin: 04/28/18 10:30 Dose: 100 mg Atorvastatin Calcium (Lipitor) 20 mg PO DAILY [facility] Last Admin: 04/28/18 10:38 Dose: 20 mg Carvedilol (Coreg) 6.25 mg PO BID [facility] Last Admin: 04/28/18 10:39 Dose: 6.25 mg Doxycycline Hyclate (Doryx) 100 mg PO Q12 [facility]; Protocol Stop: 05/06/18 22:01 Last Admin: 04/28/18 10:37 Dose: 100 mg Escitalopram Oxalate (Lexapro) 20 mg PO DAILY [facility] Last Admin: 04/28/18 10:38 Dose: 20 mg Gabapentin (Neurontin) 100 mg PO DAILY [facility]; Protocol Last Admin: 04/28/18 10:37 Dose: 100 mg Sodium Chloride (Sodium Chloride 0.9%) 1,000 mls @ 100 mls/hr IV .Q10H [facility] Last Admin: 04/27/18 20:32 Dose: 100 mls/hr Heparin Sodium/Sodium Chloride (Heparin 86408 Units/250ml 1/2 Normal Saline) 25,000 units in 250 mls @ 13.749 mls/hr IV .[id number] PRN; Protocol PRN Reason: ADJUST RATE PER PROTOCOL Last Admin: 04/28/18 00:21 Dose: 18 units/kg/hr, 13.749 mls/hr Piperacillin Sod/Tazobactam Sod (Zosyn 2.25 Gm In 0.9% 100 Ml) 2.25 gm in 100 mls @ 100 mls/hr IVPB Q8 [facility]; Protocol Stop: 05/06/18 22:01 Last Admin: 04/28/18 13:43 Dose: 100 mls/hr Magnesium Sulfate (Magnesium Sulfate 2 Gm/50 Ml Water) 2 gm in 50 mls @ 50 mls/hr IVPB ONCE ONE Stop: 04/28/18 15:14 Insulin Human Regular (Humulin R Low) 0 units SC ACHS [facility] Last Admin: 04/28/18 13:41 Dose: 1 units Meclizine HCl (Antivert) 25 mg PO DAILY [facility] Last Admin: 04/28/18 10:37 Dose: 25 mg Oxybutynin Chloride (Ditropan Tab) 5 mg PO DAILY [facility] Last Admin: 04/28/18 11:00 Dose: 5 mg Pantoprazole Sodium (Protonix Ec Tab) 40 mg PO 0600 [facility] Last Admin: 04/28/18 05:25 Dose: 40 mg Tamsulosin HCl (Flomax) 0.4 mg PO DAILY [facility] Last Admin: 04/28/18 10:37 Dose: 0.4 mg Tizanidine HCl (Zanaflex) 4 mg PO DAILY [facility] Last Admin: 04/28/18 10:38 Dose: 4 mg - Labs Labs: 04/28/18 06:15 04/28/18 06:15 PT 12.7 SECONDS (9.4-12.5) H 04/26/18 22:00 INR 1.11 04/26/18 22:00 APTT 62.4 Seconds (25.1-36.5) H 04/28/18 06:15 - Constitutional Appears: Non-toxic, No Acute Distress - Head Exam Head Exam: ATRAUMATIC, NORMAL INSPECTION, NORMOCEPHALIC - ENT Exam ENT Exam: Mucous Membranes Moist - Neck Exam Neck Exam: Normal Inspection - Respiratory Exam Respiratory Exam: Clear to Ausculation Bilateral, NORMAL BREATHING PATTERN. absent: Rales, Rhonchi, Wheezes - Cardiovascular Exam Cardiovascular Exam: RRR, +S1, +S2 - GI/Abdominal Exam GI & Abdominal Exam: Soft, Normal Bowel Sounds. absent: Tenderness - Neurological Exam Neurological Exam: Alert, Awake, CN II-XII Intact, Oriented x3 - Psychiatric Exam Psychiatric exam: Normal Affect, Normal Mood - Skin Skin Exam: Intact, Normal Color, Warm Assessment and Plan - Assessment and Plan (Free Text) Plan: 82 year old male with past medical history of CKD 3B, CAD with CABG, HTN, and renal cell carcinoma s/p nephrectomy presents with acute kidney injury in the setting of fever, malaise, and arthralgias. 1. Acute kidney injury Likely secondary to poor oral intake Creatinine back at baseline Encourage continued oral intake Mg repleted Stop IVF Avoid Nephrotoxic medications Dose antibiotics appropriately for decreased creatinine clearance 2. HTN Continue current regimen Hold Losartan/HCTZ combination at this time 3. Fever No fevers over last 24 hours Cultures negative at 24 hours Chest/abdomen/pelvis CT shows distended gallbladder with gallstones, left upper lung nodule Continue to monitor Quentin PGY-3 <Evelio Wilks - Last Filed: 04/29/18 08:54> Objective - Vital Signs/Intake and Output Vital Signs (last 24 hours): Temp Pulse Resp BP Pulse Ox 98.2 F 82 96 H 160/74 H 96 04/29/18 06:00 04/29/18 06:00 04/29/18 06:00 04/29/18 06:00 04/28/18 22:00 Intake and Output: 04/29/18 04/29/18 06:59 18:59 Intake Total 540 Balance 540 - Medications Medications: Current Medications Acetaminophen (Tylenol 325mg Tab) 650 mg PO Q4 PRN PRN Reason: Fever >100.4 F Last Admin: 04/28/18 19:10 Dose: 650 mg Allopurinol (Zyloprim) 100 mg PO DAILY [facility] Last Admin: 04/28/18 10:30 Dose: 100 mg Atorvastatin Calcium (Lipitor) 20 mg PO DAILY [facility] Last Admin: 04/28/18 10:38 Dose: 20 mg Carvedilol (Coreg) 6.25 mg PO BID [facility] Last Admin: 04/28/18 19:09 Dose: 6.25 mg Doxycycline Hyclate (Doryx) 100 mg PO Q12 [facility]; Protocol Stop: 05/06/18 22:01 Last Admin: 04/28/18 21:43 Dose: 100 mg Escitalopram Oxalate (Lexapro) 20 mg PO DAILY [facility] Last Admin: 04/28/18 10:38 Dose: 20 mg Gabapentin (Neurontin) 100 mg PO DAILY [facility]; Protocol Last Admin: 04/28/18 10:37 Dose: 100 mg Piperacillin Sod/Tazobactam Sod (Zosyn 2.25 Gm In 0.9% 100 Ml) 2.25 gm in 100 mls @ 100 mls/hr IVPB Q8 [facility]; Protocol Stop: 05/06/18 22:01 Last Admin: 04/29/18 05:54 Dose: 100 mls/hr Magnesium Sulfate (Magnesium Sulfate 2 Gm/50 Ml Water) 2 gm in 50 mls @ 50 mls/hr IVPB ONCE ONE Stop: 04/29/18 09:28 Insulin Human Regular (Humulin R Low) 0 units SC ACHS [facility] Last Admin: 04/29/18 08:20 Dose: Not Given Meclizine HCl (Antivert) 25 mg PO DAILY [facility] Last Admin: 04/28/18 10:37 Dose: 25 mg Oxybutynin Chloride (Ditropan Tab) 5 mg PO DAILY [facility] Last Admin: 04/28/18 11:00 Dose: 5 mg Pantoprazole Sodium (Protonix Ec Tab) 40 mg PO 0600 [facility] Last Admin: 04/29/18 05:54 Dose: 40 mg Tamsulosin HCl (Flomax) 0.4 mg PO DAILY [facility] Last Admin: 04/28/18 10:37 Dose: 0.4 mg Tizanidine HCl (Zanaflex) 4 mg PO DAILY [facility] Last Admin: 04/28/18 10:38 Dose: 4 mg - Labs Labs: 04/29/18 06:45 04/29/18 06:45 PT 12.7 SECONDS (9.4-12.5) H 04/26/18 22:00 INR 1.11 04/26/18 22:00 APTT 62.4 Seconds (25.1-36.5) H 04/28/18 06:15 Attending/Attestation - Attestation I have personally seen and examined this patient.: Yes I have fully participated in the care of the patient.: Yes I have reviewed all pertinent clinical information, including history, physical exam and plan: Yes Notes (Text): Patient seen and examined; I agree with the resident's note as above with the following additions/edits: Patient with htn, DM, CAD s/p CABG, CKD IIIB, renal cell CA s/p R nephrectomy, admitted with fever; Pre-renal DELMAR, resolved with IVF; otherwise stable volume and electrolyte st atus; no longer febrile; ID workup in progress, will f/u; recommend to dose any antibiotics for CrCl < 40 ml/min; BP controlled, losartan and diuretic currently on hold; currently with stable volume staus; can likely restart ARB soon (has proteinuric kidney disease);
--- NOTE | 2018-04-28 14:49 | CP.PCM.PN ---
<Kathya Alarcon - Last Filed: 04/28/18 17:32> Subjective - Date & Time of Evaluation Date of Evaluation: 04/28/18 Time of Evaluation: 07:45 - Subjective Subjective: Internal Medicine progress note for Dr. Evans Patient seen and examined this am at bedside. NAEO per nursing. Patient is resting comfortably and currently having no complaints. He denies DARLING, SOB, CP abdominal pain, n/v, f/c and extremity pain or weakness. Objective - Vital Signs/Intake and Output Vital Signs (last 24 hours): Temp Pulse Resp BP Pulse Ox 96.8 F L 71 18 133/64 99 04/28/18 06:00 04/28/18 14:30 04/28/18 14:30 04/28/18 14:30 04/28/18 14:30 Intake and Output: 04/28/18 04/28/18 06:59 18:59 Intake Total 250 Output Total 600 Balance -350 - Medications Medications: Current Medications Acetaminophen (Tylenol 325mg Tab) 650 mg PO Q4 PRN PRN Reason: Fever >100.4 F Last Admin: 04/28/18 11:44 Dose: 650 mg Allopurinol (Zyloprim) 100 mg PO DAILY [facility] Last Admin: 04/28/18 10:30 Dose: 100 mg Atorvastatin Calcium (Lipitor) 20 mg PO DAILY [facility] Last Admin: 04/28/18 10:38 Dose: 20 mg Carvedilol (Coreg) 6.25 mg PO BID [facility] Last Admin: 04/28/18 10:39 Dose: 6.25 mg Doxycycline Hyclate (Doryx) 100 mg PO Q12 [facility]; Protocol Stop: 05/06/18 22:01 Last Admin: 04/28/18 10:37 Dose: 100 mg Escitalopram Oxalate (Lexapro) 20 mg PO DAILY [facility] Last Admin: 04/28/18 10:38 Dose: 20 mg Gabapentin (Neurontin) 100 mg PO DAILY [facility]; Protocol Last Admin: 04/28/18 10:37 Dose: 100 mg Piperacillin Sod/Tazobactam Sod (Zosyn 2.25 Gm In 0.9% 100 Ml) 2.25 gm in 100 mls @ 100 mls/hr IVPB Q8 [facility]; Protocol Stop: 05/06/18 22:01 Last Admin: 04/28/18 13:43 Dose: 100 mls/hr Magnesium Sulfate (Magnesium Sulfate 2 Gm/50 Ml Water) 2 gm in 50 mls @ 50 mls/hr IVPB ONCE ONE Stop: 04/28/18 15:14 Insulin Human Regular (Humulin R Low) 0 units SC ACHS [facility] Last Admin: 04/28/18 13:41 Dose: 1 units Meclizine HCl (Antivert) 25 mg PO DAILY [facility] Last Admin: 04/28/18 10:37 Dose: 25 mg Oxybutynin Chloride (Ditropan Tab) 5 mg PO DAILY [facility] Last Admin: 04/28/18 11:00 Dose: 5 mg Pantoprazole Sodium (Protonix Ec Tab) 40 mg PO 0600 [facility] Last Admin: 04/28/18 05:25 Dose: 40 mg Tamsulosin HCl (Flomax) 0.4 mg PO DAILY [facility] Last Admin: 04/28/18 10:37 Dose: 0.4 mg Tizanidine HCl (Zanaflex) 4 mg PO DAILY [facility] Last Admin: 04/28/18 10:38 Dose: 4 mg - Labs Labs: 04/28/18 06:15 04/28/18 06:15 PT 12.7 SECONDS (9.4-12.5) H 04/26/18 22:00 INR 1.11 04/26/18 22:00 APTT 62.4 Seconds (25.1-36.5) H 04/28/18 06:15 - Constitutional Appears: Non-toxic, No Acute Distress - Head Exam Head Exam: ATRAUMATIC, NORMOCEPHALIC - Eye Exam Eye Exam: EOMI - ENT Exam ENT Exam: Mucous Membranes Moist - Respiratory Exam Respiratory Exam: NORMAL BREATHING PATTERN - Cardiovascular Exam Cardiovascular Exam: REGULAR RHYTHM - GI/Abdominal Exam GI & Abdominal Exam: Soft. absent: Distended, Guarding, Tenderness - Extremities Exam Extremities Exam: absent: Calf Tenderness, Pedal Edema - Neurological Exam Neurological Exam: Alert, Awake, Oriented x3 - Psychiatric Exam Psychiatric exam: Normal Affect, Normal Mood - Skin Skin Exam: Dry, Intact, Normal Color, Warm Assessment and Plan - Assessment and Plan (Free Text) Assessment: 82yo male admitted for fever, malaise and arthralgias Plan: 1. Fever/chills/arthralgias r/o viral/bacterial/parasitic infections - afebrile since admission - continue abx per ID recs - will follow up malaria/baesia serology and urine legionella tests 2. Elevated D-dimer after recent travel - VQ scan negative - No SOB 3. DELMAR on CKD - all medications renally dosed 4. Chronic RLE pain - c/w home tylenol, neurontin and Zanaflex 5. Hx of HTN -c/w Home coreg 6. Hx of DM - Humulin SSI low - finger checks ACHS 7. Hx of HLD - c/w Lipitor - c/w home allopurinol 8. Hx of vertigo - c/w home meclizine Patient seen and examined with Dr. Nathan Alarcon, PGY 1 <Aminata Evans - Last Filed: 04/29/18 14:57> Objective - Vital Signs/Intake and Output Vital Signs (last 24 hours): Temp Pulse Resp BP Pulse Ox 98.2 F 82 96 H 160/74 H 96 04/29/18 06:00 04/29/18 06:00 04/29/18 06:00 04/29/18 06:00 04/28/18 22:00 Intake and Output: 04/29/18 04/29/18 06:59 18:59 Intake Total 540 Balance 540 - Medications Medications: Current Medications Acetaminophen (Tylenol 325mg Tab) 650 mg PO Q4 PRN PRN Reason: Fever >100.4 F Last Admin: 04/29/18 10:45 Dose: 650 mg Allopurinol (Zyloprim) 100 mg PO DAILY [facility] Last Admin: 04/29/18 09:11 Dose: 100 mg Atorvastatin Calcium (Lipitor) 20 mg PO DAILY [facility] Last Admin: 04/29/18 09:12 Dose: 20 mg Carvedilol (Coreg) 6.25 mg PO BID [facility] Last Admin: 04/29/18 09:12 Dose: 6.25 mg Doxycycline Hyclate (Doryx) 100 mg PO Q12 [facility]; Protocol Stop: 05/06/18 22:01 Last Admin: 04/29/18 09:12 Dose: 100 mg Escitalopram Oxalate (Lexapro) 20 mg PO DAILY [facility] Last Admin: 04/29/18 09:12 Dose: 20 mg Gabapentin (Neurontin) 100 mg PO DAILY [facility]; Protocol Last Admin: 04/29/18 09:11 Dose: 100 mg Insulin Human Regular (Humulin R Low) 0 units SC ACHS [facility] Last Admin: 04/29/18 12:53 Dose: Not Given Losartan Potassium (Cozaar) 100 mg PO DAILY [facility] Last Admin: 04/29/18 09:15 Dose: 100 mg Meclizine HCl (Antivert) 25 mg PO DAILY [facility] Last Admin: 04/29/18 09:12 Dose: 25 mg Oxybutynin Chloride (Ditropan Tab) 5 mg PO DAILY [facility] Last Admin: 04/29/18 09:12 Dose: 5 mg Pantoprazole Sodium (Protonix Ec Tab) 40 mg PO 0600 [facility] Last Admin: 04/29/18 05:54 Dose: 40 mg Tamsulosin HCl (Flomax) 0.4 mg PO DAILY [facility] Last Admin: 04/29/18 09:12 Dose: 0.4 mg Tizanidine HCl (Zanaflex) 4 mg PO DAILY [facility] Last Admin: 04/29/18 09:12 Dose: 4 mg - Labs Labs: 04/29/18 06:45 04/29/18 06:45 PT 12.7 SECONDS (9.4-12.5) H 04/26/18 22:00 INR 1.11 04/26/18 22:00 APTT 62.4 Seconds (25.1-36.5) H 04/28/18 06:15 Attending/Attestation - Attestation I have personally seen and examined this patient.: Yes I have fully participated in the care of the patient.: Yes I have reviewed all pertinent clinical information, including history, physical exam and plan: Yes Notes (Text): 04/29/18 14:53 Attending note; Patient seen and examined with resident. Patient is alert and awake. Complaining of generalized weakness. Fevers improved. Denies any nausea, vomiting. Denies any chest pain. Denies any shortness of breath. Denies any urinary complaints. Patient is a 82-year-old male with PMH of CAD s/p triple bypass, renal cell CA s/p nephrectomy, DM, and chronic RLE pain is admitted for arthalgias/myalgias, malaise, fever, found to have elevated Cr on admission admitted to [facility] for DELMAR on CKD, and febrile illness. 1. Acute febrile illness; currently fever is improving. Influenza is negative. Blood culture, urine culture ordered. Continue Zosyn and doxycycline. ID evaluation appreciated. Malaria, babesiosis pending. 2. Acute on chronic kidney disease; continue IV fluids. Monitor creatinine closely. Nephrology evaluation appreciated. Upon discharge the patient will follow-up with PMD DR. Shabazz.
[2018-04-28 22:49] VITALS: O2SAT 96
[2018-04-29] MEDS: Piperacillin/Tazobact 2.25gm 2.25 GM/100 ML BAG IVPB SCH (05:54)
[2018-04-29] MEDS: Pantoprazole 40 mg EC Tab PO SCH (05:54)
--- NOTE | 2018-04-29 06:52 | CP.PCM.PN ---
<Moses Hager - Last Filed: 04/29/18 11:33> Subjective - Date & Time of Evaluation Date of Evaluation: 04/29/18 Time of Evaluation: 06:49 - Subjective Subjective: Infectious disease progress note for Dr. Doherty/Dr. Rivas service - Alexander Hager PGY3 Patient seen and examined at bedside this morning. No acute overnight events or new complaints reported. Remains afebrile, ABD US pending. Denies cp, palpitations, SOB. Objective - Vital Signs/Intake and Output Vital Signs (last 24 hours): Temp Pulse Resp BP Pulse Ox 98.4 F 84 18 140/82 96 04/28/18 22:00 04/28/18 22:00 04/28/18 22:00 04/28/18 22:00 04/28/18 22:00 Intake and Output: 04/28/18 04/29/18 18:59 06:59 Intake Total 1200 540 Balance 1200 540 - Medications Medications: Current Medications Acetaminophen (Tylenol 325mg Tab) 650 mg PO Q4 PRN PRN Reason: Fever >100.4 F Last Admin: 04/28/18 19:10 Dose: 650 mg Allopurinol (Zyloprim) 100 mg PO DAILY [facility] Last Admin: 04/28/18 10:30 Dose: 100 mg Atorvastatin Calcium (Lipitor) 20 mg PO DAILY [facility] Last Admin: 04/28/18 10:38 Dose: 20 mg Carvedilol (Coreg) 6.25 mg PO BID [facility] Last Admin: 04/28/18 19:09 Dose: 6.25 mg Doxycycline Hyclate (Doryx) 100 mg PO Q12 [facility]; Protocol Stop: 05/06/18 22:01 Last Admin: 04/28/18 21:43 Dose: 100 mg Escitalopram Oxalate (Lexapro) 20 mg PO DAILY [facility] Last Admin: 04/28/18 10:38 Dose: 20 mg Gabapentin (Neurontin) 100 mg PO DAILY [facility]; Protocol Last Admin: 04/28/18 10:37 Dose: 100 mg Piperacillin Sod/Tazobactam Sod (Zosyn 2.25 Gm In 0.9% 100 Ml) 2.25 gm in 100 mls @ 100 mls/hr IVPB Q8 [facility]; Protocol Stop: 05/06/18 22:01 Last Admin: 04/29/18 05:54 Dose: 100 mls/hr Insulin Human Regular (Humulin R Low) 0 units SC ACHS [facility] Last Admin: 04/28/18 21:42 Dose: Not Given Meclizine HCl (Antivert) 25 mg PO DAILY [facility] Last Admin: 04/28/18 10:37 Dose: 25 mg Oxybutynin Chloride (Ditropan Tab) 5 mg PO DAILY [facility] Last Admin: 04/28/18 11:00 Dose: 5 mg Pantoprazole Sodium (Protonix Ec Tab) 40 mg PO 0600 [facility] Last Admin: 04/29/18 05:54 Dose: 40 mg Tamsulosin HCl (Flomax) 0.4 mg PO DAILY [facility] Last Admin: 04/28/18 10:37 Dose: 0.4 mg Tizanidine HCl (Zanaflex) 4 mg PO DAILY [facility] Last Admin: 04/28/18 10:38 Dose: 4 mg - Labs Labs: 04/28/18 06:15 04/28/18 06:15 PT 12.7 SECONDS (9.4-12.5) H 04/26/18 22:00 INR 1.11 04/26/18 22:00 APTT 62.4 Seconds (25.1-36.5) H 04/28/18 06:15 - Constitutional Appears: No Acute Distress - Head Exam Head Exam: ATRAUMATIC, NORMAL INSPECTION, NORMOCEPHALIC - Eye Exam Eye Exam: EOMI, PERRL - ENT Exam ENT Exam: Mucous Membranes Moist - Respiratory Exam Respiratory Exam: absent: Rales, Rhonchi, Wheezes - Cardiovascular Exam Cardiovascular Exam: RRR, +S1, +S2. absent: Gallop, JVD, Rubs - GI/Abdominal Exam GI & Abdominal Exam: Soft. absent: Distended, Firm, Guarding, Rigid, Tenderness, Rebound - Neurological Exam Neurological Exam: Alert, Awake, CN II-XII Intact, Oriented x3 - Psychiatric Exam Psychiatric exam: Normal Affect, Normal Mood - Skin Skin Exam: Dry, Intact, Normal Color, Warm Assessment and Plan - Assessment and Plan (Free Text) Plan: 82yo male with history of CAD s/p triple bypass, renal cell CA s/p nephrectomy, DM, chronic RLE pain and CKD presents with fever associated with malaise, arthralgias. ID consulted for evaluation of infectious etiologies. 1. Fever/chills/arthralgias r/o viral/bacterial/parasitic infections 2. DELAMR on CKD 3. Chronic RLE pain 4. Hx of HTN 5. Hx of DM 6. Hx of HLD 7. Hx of vertigo Plan: -Patient has presently been afebrile since admission, no leukocytosis; Tmax of 102.6F -Blood cultures thus far negative -Urine culture contamination however urinalysis negative for infection -CXR revealed no active disease -EKG reviewed -Procalcitonin is elevated at 8.43 however may be elevated in CKD patients -Rapid flu negative -MRSA screen pending -Malaria/babesia workup pending -CT chest/abdomen/pelvis reviewed; revealed GB wall thickening -Abdominal US ordered to eval for cholecystitis however LFT's are unremarkable -Legionella urine antigen pending -Patient has presently been started on Zosyn/Doxycyline pending the above workup -f/u nephrology recommendations concerning DELMAR on CKD Patient seen and case discussed/reviewed with attending, Dr. Doherty <Kyle Doherty S - Last Filed: 04/29/18 23:13> Objective - Vital Signs/Intake and Output Vital Signs (last 24 hours): Temp Pulse Resp BP Pulse Ox 98.2 F 82 96 H 160/74 H 96 04/29/18 06:00 04/29/18 06:00 04/29/18 06:00 04/29/18 06:00 04/28/18 22:00 - Labs Labs: 04/29/18 06:45 04/29/18 06:45 PT 12.7 SECONDS (9.4-12.5) H 04/26/18 22:00 INR 1.11 04/26/18 22:00 APTT 62.4 Seconds (25.1-36.5) H 04/28/18 06:15 Assessment and Plan - Assessment and Plan (Free Text) Plan: Infectious diseases Attending Physician Attestation Patient seen and examined, discussed with medical service representative. I have reviewed the patient's history of present illness, past medical, social, personal and family histories, pertinent physical exam findings, course so far in this hospital admission, pertinent laboratory and imaging results. I agree with the above findings, assessment and plan. In addition, patient on Zosyn and Doxycycline in this patient with SIRS but no evidence of bacterial infection. If cultures continue to be negative, may d/c antibiotics. Reviewed U/S of abdomen and it is negative for cholecystitis.
[2018-04-29 07:13] LABS: BASO # 0.01 K/mm3 (0.0-2.0); BASO % 0.1 % (0.0-3.0); EOS # 0.2 (0.0-0.7); EOS % 2.7 % (1.5-5.0); GRAN # 4.25 (1.4-6.5); GRAN % 63.5 % (50.0-68.0); HEMOGLOBIN 11.4 g/dL (14.0-18.0); LYMPH # 1.5 (1.2-3.4); LYMPH % 21.9 % (22.0-35.0); MEAN CELL VOLUME 98.6 fl (80.0-105.0); MEAN CORPUSCULAR HEMOGLOBIN 31.8 pg (25.0-35.0); MEAN CORPUSCULAR HGB CONC 32.3 g/dl (31.0-37.0); MEAN PLATELET VOLUME 11.1 fl (7.0-11.0); MONO # 0.8 (0.1-0.6); MONO % 11.8 % (1.0-6.0); RBC 3.58 10^6/uL (3.5-6.1); RED CELL DISTRIBUTION WIDTH 12.9 % (11.5-14.5); WHITE BLOOD COUNT 6.7 10^3/uL (4.5-11.0)
[2018-04-29 07:28] LABS: ALB/GLOB RATIO 1.1 (1.1-1.8); ALBUMIN 3.8 g/dL (3.0-4.8); CALCIUM 9.2 mg/dL (8.4-10.5)
[2018-04-29] MEDS: Insulin Reg-LOW-Coverage SC SCH ×2 (08:20→12:53)
[2018-04-29] MEDS ORDERED: Magnesium Sulfate 2 gm/50 ml 2 GM/50 ML BAG IVPB ONE (08:29)
[2018-04-29 08:35] VITALS: BP 160/74; PULSE 82; RESP 96; TEMP 98.2
--- NOTE | 2018-04-29 10:01 | US ---
Date of service: 04/29/2018 HISTORY: eval for cholecystitis COMPARISON: April 28, 2018. CT chest abdomen and pelvis. TECHNIQUE: Sonographic evaluation of the abdomen. FINDINGS: LIVER: Measures 18.1 cm. Normal echogenicity of the liver parenchyma. No mass. No intrahepatic bile duct dilatation. GALLBLADDER: Cholelithiasis. Negative study for gallbladder wall thickening, pericholecystic fluid, sonographic Solano's sign. COMMON BILE DUCT: Measures 5.8 mm. No stones. No dilatation. PANCREAS: Unremarkable as visualized. No mass. No ductal dilatation. RIGHT KIDNEY: Measures 5.4 x 11.6cm. Normal echogenicity. No calculus, mass, or hydronephrosis. LEFT KIDNEY: Prior left nephrectomy SPLEEN: Normal in size and contour. No mass. AORTA: No aneurysmal dilatation. IVC: Unremarkable. OTHER FINDINGS: None. IMPRESSION: Cholelithiasis. No sonographic evidence of acute cholecystitis.
--- NOTE | 2018-04-29 10:33 | CP.PCM.PN ---
Subjective - Date & Time of Evaluation Date of Evaluation: 04/29/18 Time of Evaluation: 09:15 - Subjective Subjective: Patient seen and examined at bedside. Patient with no acute events overnight and no complaints. Patient admits to tolerating his diet. Denies chest pain, shortness of breath, nausea, vomiting, diarrhea, fever, chills. Objective - Vital Signs/Intake and Output Vital Signs (last 24 hours): Temp Pulse Resp BP Pulse Ox 98.2 F 82 96 H 160/74 H 96 04/29/18 06:00 04/29/18 06:00 04/29/18 06:00 04/29/18 06:00 04/28/18 22:00 Intake and Output: 04/29/18 04/29/18 06:59 18:59 Intake Total 540 Balance 540 - Medications Medications: Current Medications Acetaminophen (Tylenol 325mg Tab) 650 mg PO Q4 PRN PRN Reason: Fever >100.4 F Last Admin: 04/28/18 19:10 Dose: 650 mg Allopurinol (Zyloprim) 100 mg PO DAILY [facility] Last Admin: 04/29/18 09:11 Dose: 100 mg Atorvastatin Calcium (Lipitor) 20 mg PO DAILY [facility] Last Admin: 04/29/18 09:12 Dose: 20 mg Carvedilol (Coreg) 6.25 mg PO BID [facility] Last Admin: 04/29/18 09:12 Dose: 6.25 mg Doxycycline Hyclate (Doryx) 100 mg PO Q12 [facility]; Protocol Stop: 05/06/18 22:01 Last Admin: 04/29/18 09:12 Dose: 100 mg Escitalopram Oxalate (Lexapro) 20 mg PO DAILY [facility] Last Admin: 04/29/18 09:12 Dose: 20 mg Gabapentin (Neurontin) 100 mg PO DAILY [facility]; Protocol Last Admin: 04/29/18 09:11 Dose: 100 mg Piperacillin Sod/Tazobactam Sod (Zosyn 2.25 Gm In 0.9% 100 Ml) 2.25 gm in 100 mls @ 100 mls/hr IVPB Q8 [facility]; Protocol Stop: 05/06/18 22:01 Last Admin: 04/29/18 05:54 Dose: 100 mls/hr Insulin Human Regular (Humulin R Low) 0 units SC ACHS [facility] Last Admin: 04/29/18 08:20 Dose: Not Given Losartan Potassium (Cozaar) 100 mg PO DAILY [facility] Last Admin: 04/29/18 09:15 Dose: 100 mg Meclizine HCl (Antivert) 25 mg PO DAILY [facility] Last Admin: 04/29/18 09:12 Dose: 25 mg Oxybutynin Chloride (Ditropan Tab) 5 mg PO DAILY [facility] Last Admin: 04/29/18 09:12 Dose: 5 mg Pantoprazole Sodium (Protonix Ec Tab) 40 mg PO 0600 [facility] Last Admin: 04/29/18 05:54 Dose: 40 mg Tamsulosin HCl (Flomax) 0.4 mg PO DAILY [facility] Last Admin: 04/29/18 09:12 Dose: 0.4 mg Tizanidine HCl (Zanaflex) 4 mg PO DAILY [facility] Last Admin: 04/29/18 09:12 Dose: 4 mg - Labs Labs: 04/29/18 06:45 04/29/18 06:45 PT 12.7 SECONDS (9.4-12.5) H 04/26/18 22:00 INR 1.11 04/26/18 22:00 APTT 62.4 Seconds (25.1-36.5) H 04/28/18 06:15 - Constitutional Appears: Non-toxic, No Acute Distress - Head Exam Head Exam: ATRAUMATIC, NORMAL INSPECTION, NORMOCEPHALIC - ENT Exam ENT Exam: Mucous Membranes Moist - Respiratory Exam Respiratory Exam: Clear to Ausculation Bilateral, NORMAL BREATHING PATTERN. absent: Rales, Rhonchi, Wheezes - Cardiovascular Exam Cardiovascular Exam: RRR, +S1, +S2 - GI/Abdominal Exam GI & Abdominal Exam: Soft, Normal Bowel Sounds. absent: Tenderness - Extremities Exam Extremities Exam: Normal Inspection. absent: Calf Tenderness, Pedal Edema - Neurological Exam Neurological Exam: Alert, Awake, CN II-XII Intact, Oriented x3 - Psychiatric Exam Psychiatric exam: Normal Affect, Normal Mood - Skin Skin Exam: Intact, Normal Color, Warm Assessment and Plan - Assessment and Plan (Free Text) Plan: 82 year old male with past medical history of CKD 3B, CAD with CABG, HTN, and renal cell carcinoma s/p nephrectomy presents with acute kidney injury in the setting of fever, malaise, and arthralgias. 1. Acute kidney injury Likely secondary to pre-renal component Creatinine improving Encourage continued oral intake Avoid Nephrotoxic medications Dose antibiotics appropriately for decreased creatinine clearance 2. HTN Continue current regimen Hold Losartan/HCTZ combination at this time, will restart soon 3. Fever No fevers over last 48 hours Cultures negative at 48 hours Chest/abdomen/pelvis CT shows distended gallbladder with gallstones, left upper lung nodule Abdomen US shows cholelithiasis, no cholecystitis Continue to monitor Bhagwandin, PGY-3
--- NOTE | 2018-04-30 07:24 | CP.PCM.DIS ---
Provider - Provider Date of Admission: 04/28/18 14:35 Attending physician: Aminata Evans MD Primary care physician: Angelo Shabazz MD Consults: 04/27/18 02:00 Nephrology Consult Routine Comment: Consulting Provider: Evelio Wilks Consulting Physician: Evelio Wilks Reason for Consult: DELMAR on CKD 04/27/18 20:41 Infectious Disease Consult Routine Comment: Consulting Provider: Kyle Doherty Consulting Physician: Kyle Doheryt Reason for Consult: Elevated procal Time Spent in preparation of Discharge (in minutes): 45 Diagnosis - Discharge Diagnosis (1) Acute renal failure syndrome Status: Acute (2) Dehydration Status: Acute Hospital Course - Lab Results Lab Results: Micro Results 04/26/18 22:30 Blood Blood Culture - Preliminary NO GROWTH AFTER 3 DAYS 04/26/18 22:00 Blood Blood Culture - Preliminary NO GROWTH AFTER 3 DAYS 04/26/18 22:00 Urine,Clean Catch Urine Culture - Final 10-50,000 CFU/ML. MULTIPLE SPECIES. PROBABLE CONTAMINATION. Most Recent Lab Values WBC 6.7 10^3/uL (4.5-11.0) 04/29/18 06:45 RBC 3.58 10^6/uL (3.5-6.1) 04/29/18 06:45 Hgb 11.4 g/dL (14.0-18.0) L 04/29/18 06:45 Hct 35.3 % (42.0-52.0) L 04/29/18 06:45 MCV 98.6 fl (80.0-105.0) 04/29/18 06:45 MCH 31.8 pg (25.0-35.0) 04/29/18 06:45 MCHC 32.3 g/dl (31.0-37.0) 04/29/18 06:45 RDW 12.9 % (11.5-14.5) 04/29/18 06:45 Plt Count 191 10^3/uL (120.0-450.0) 04/29/18 06:45 MPV 11.1 fl (7.0-11.0) H 04/29/18 06:45 Gran % 63.5 % (50.0-68.0) 04/29/18 06:45 Lymph % (Auto) 21.9 % (22.0-35.0) L 04/29/18 06:45 Powell % (Auto) 11.8 % (1.0-6.0) H 04/29/18 06:45 Eos % (Auto) 2.7 % (1.5-5.0) 04/29/18 06:45 Baso % (Auto) 0.1 % (0.0-3.0) 04/29/18 06:45 Gran # 4.25 (1.4-6.5) 04/29/18 06:45 Lymph # (Auto) 1.5 (1.2-3.4) 04/29/18 06:45 Powell # (Auto) 0.8 (0.1-0.6) H 04/29/18 06:45 Eos # (Auto) 0.2 (0.0-0.7) 04/29/18 06:45 Baso # (Auto) 0.01 K/mm3 (0.0-2.0) 04/29/18 06:45 PT 12.7 SECONDS (9.4-12.5) H 04/26/18 22:00 INR 1.11 04/26/18 22:00 APTT 62.4 Seconds (25.1-36.5) H 04/28/18 06:15 D-Dimer, Quantitative 1025 ng/mlDDU (0-243) H 04/27/18 01:00 pO2 32 mm/Hg (30-55) 04/26/18 22:00 VBG pH 7.29 (7.32-7.43) L 04/26/18 22:00 VBG pCO2 45.0 (40-60) 04/26/18 22:00 VBG HCO3 21.6 mmol/l (21-28) 04/26/18 22:00 VBG Total CO2 23.0 mmol.L (22-28) 04/26/18 22:00 VBG O2 Sat (Calc) 68.5 % (40-65) H 04/26/18 22:00 VBG Base Excess -5.0 mmol/L (0.0-2.0) L 04/26/18 22:00 VBG Potassium 5.0 mmol/L (3.6-5.2) 04/26/18 22:00 Sodium 139.0 mmol/L (132-148) 04/26/18 22:00 Chloride 106.0 mmol/L (98-107) 04/26/18 22:00 Glucose 199 mg/dl (75-110) H 04/26/18 22:00 Lactate 1.7 mmol/L (0.7-2.1) 04/26/18 22:00 FiO2 21.0 % 04/26/18 22:00 Sodium 143 mmol/L (132-148) 04/29/18 06:45 Potassium 4.5 mmol/L (3.6-5.0) 04/29/18 06:45 Chloride 110 mmol/L (98-107) H 04/29/18 06:45 Carbon Dioxide 25 mmol/L (21-33) 04/29/18 06:45 Anion Gap 12 (10-20) 04/29/18 06:45 BUN 22 mg/dL (7-21) H 04/29/18 06:45 Creatinine 1.5 mg/dl (0.8-1.5) 04/29/18 06:45 Est GFR ( Amer) 54 04/29/18 06:45 Est GFR (Non-Af Amer) 45 04/29/18 06:45 POC Glucose (mg/dL) 181 mg/dL (65-110) H 04/29/18 11:29 Random Glucose 138 mg/dL (70-110) H 04/29/18 06:45 Calcium 9.2 mg/dL (8.4-10.5) 04/29/18 06:45 Phosphorus 2.5 mg/dL (2.5-4.5) 04/27/18 04:13 Magnesium 1.6 mg/dL (1.7-2.2) L 04/29/18 06:45 Total Bilirubin 0.5 mg/dL (0.2-1.3) 04/29/18 06:45 AST 36 U/L (17-59) 04/29/18 06:45 ALT 41 U/L (7-56) 04/29/18 06:45 Alkaline Phosphatase 90 U/L (38-126) 04/29/18 06:45 Total Protein 7.2 g/dL (5.8-8.3) 04/29/18 06:45 Albumin 3.8 g/dL (3.0-4.8) 04/29/18 06:45 Globulin 3.4 gm/dL 04/29/18 06:45 Albumin/Globulin Ratio 1.1 (1.1-1.8) 04/29/18 06:45 Procalcitonin 8.43 NG/ML (0.19-0.49) H 04/27/18 04:13 Venous Blood Potassium 5.0 mmol/L (3.6-5.2) 04/26/18 22:00 Urine Color Yellow (YELLOW) 04/26/18 22:00 Urine Appearance Clear (CLEAR) 04/26/18 22:00 Urine pH 6.0 (4.7-8.0) 04/26/18 22:00 Ur Specific Golden 1.025 (1.005-1.035) 04/26/18 22:00 Urine Protein 100 mg/dL (<30 mg/dL) H 04/26/18 22:00 Urine Glucose (UA) Negative mg/dL (NEGATIVE) 04/26/18 22:00 Urine Ketones Negative mg/dL (NEGATIVE) 04/26/18 22:00 Urine Blood Negative (NEGATIVE) 04/26/18 22:00 Urine Nitrate Negative (NEGATIVE) 04/26/18 22:00 Urine Bilirubin Negative (NEGATIVE) 04/26/18 22:00 Urine Urobilinogen 0.2 E.U./dL (<1 E.U./dL) 04/26/18 22:00 Ur Leukocyte Esterase Negative Ina/uL (NEGATIVE) 04/26/18 22:00 Urine RBC 0 - 2 /hpf (0-2) 04/26/18 22:00 Urine WBC 0 - 2 /hpf (0-6) 04/26/18 22:00 Ur Epithelial Cells None /hpf (0-5) 04/26/18 22:00 Urine Bacteria Neg (NEG) 04/26/18 22:00 Hyaline Casts 0 - 2 /hpf 04/26/18 22:00 Urine Other Usperm 04/26/18 22:00 Influenza Typ A,B (EIA) Negative for flu a/b (NEGATIVE) 04/26/18 22:00 Malaria Source See note (NEGATIVE) 04/27/18 21:57 - Hospital Course Hospital Course: Upon Admission: 82 year old male PMHx significant for CAD s/p triple bypass 1994, Renal CA s/p R nephrectomy, Diabetes, HTN, presenting to [facility] on 04/27/18 with complain of Body Ache and Fever for 2 days. Patient reports symptoms began after he came back from a trip to [place] 2 days ago; He admits of Body aches, shivering, fever, chills, nausea, malaise and solitary episode of SOB. Denies any sick contacts at home or in [place]. He also admitted of right ear pain with no dizziness. Patient also admitted of chronic right lower extremity pain. Blood work was done with increased Cr. Pt was admitted for acute kidney injury on CKD as well as r/o bacterial infection. Hospital Course: During his hospital stay, Blood work was done with no increase in WBC. Blood and Urine culture was done with no positive findings. Elevated procalcitonin of 8.4Pt was strated on zocyn/doxycline Chest x-ray and CT scan was done with no acute findings. Abd CT scan was done with non-symptomatic gallstones finding.Abd ultra sound was done with positive cholelithiasis with no evidence of acute cholecystitis. Infection disease and nephrology teams were consulted on the case. Patient was found hyperkalemic which was resolved with one dose of kayexalate. His Creatinine level came back to the base line after IV fluid. DELMAR was most likely due poor PO fluid uptake. No bacterial or infection source was found for the fever and body ache. His symptoms is most likely viral. Patient's chronic leg pain was controlled with pain medication. ID and nephro signed off the case stating that the illness is likely viral and to continue with supprotive care. The pt was informed about the medical plan for d/c and the pt expressed understanding and agreement of the medical plan for d/c. All of the pts questions and concerns were addressed prior to d/c. Pt is instructed to follow up with his primary care doctor and return to the hospital for any worsening symptoms. Disclaimer: Written above is a synopsis of patients current hospital admission. For full admission refer to EMR. Discharge Exam - Head Exam Head Exam: ATRAUMATIC, NORMAL INSPECTION, NORMOCEPHALIC - Eye Exam Eye Exam: EOMI, Normal appearance, PERRL - Respiratory Exam Respiratory Exam: Clear to PA & Lateral, NORMAL BREATHING PATTERN, UNREMARKABLE. absent: Rales, Rhonchi, Wheezes, Respiratory Distress - Cardiovascular Exam Cardiovascular Exam: RRR, +S1, +S2. absent: Gallop, Rubs - GI/Abdominal Exam GI & Abdominal Exam: Normal Bowel Sounds, Soft, Unremarkable. absent: Tenderness - Back Exam Back exam: NORMAL INSPECTION. absent: CVA tenderness (L), CVA tenderness (R) - Neurological Exam Neurological exam: Alert, Oriented x3 - Psychiatric Exam Psychiatric exam: Normal Affect, Normal Mood - Skin Skin Exam: Dry, Normal Color, Warm Discharge Plan - Follow Up Plan Condition: FAIR Disposition: HOME/ ROUTINE Instructions: Dehydration, Adult (DC) Additional Instructions: Please follow up with primary doctor Dr. Shabazz in 3-5 days. Please continue home medications as prescribed. If your symptoms worsen, please go to the nearest emergency department. Referrals: Angelo Shabazz MD [Primary Care Provider] -
== END 2018-04-29 17:51 | disposition home or self-care (01) | DRG 684 ==
LOC: ED 21:20 → ERH 04-27 00:11 → OBSVTOIN 04-28 14:35 → ERH 04-28 14:40 → 5RNO 04-28 17:41
PROVIDERS: ADMIT Hospitalist; ATTEND Internal Medicine
DX: N17.9 Acute kidney failure, unspecified (principal); E86.0 Dehydration; I12.9 Hypertensive chronic kidney disease with stage 1 through stage 4 chronic kidney disease, or unspecified chronic kidney disease; N18.3 Chronic kidney disease, stage 3 (moderate); E11.22 Type 2 diabetes mellitus with diabetic chronic kidney disease; I25.10 Atherosclerotic heart disease of native coronary artery without angina pectoris; N40.0 Benign prostatic hyperplasia without lower urinary tract symptoms; E87.5 Hyperkalemia; K80.20 Calculus of gallbladder without cholecystitis without obstruction; R50.9 Fever, unspecified; Z85.528 Personal history of other malignant neoplasm of kidney; Z90.5 Acquired absence of kidney; Z79.84 Long term (current) use of oral hypoglycemic drugs; Z87.891 Personal history of nicotine dependence; Z95.1 Presence of aortocoronary bypass graft